=== PATIENT | female | born 1970 | race Caucasian/White ===

== ENCOUNTER 2017-04-22 07:13 | Inpatient (IN) | payer MEDICARE, MEDICAID ==
[2017-04-22] MEDS ORDERED: ASPIRIN 81 MG TABLET, CHEWABLE PO ONE (07:15)
[2017-04-22] MEDS ORDERED: HYDROMORPHONE HCL INJ/PF 2 MG/ML AMPULE IV ONE (07:45)
[2017-04-22] MEDS ORDERED: ONDANSETRON HCL INJ/PF 4 MG/2 ML SDV IV ONE (07:45)
--- NOTE | 2017-04-22 08:09 | ER Document Report ---
ED General - General Chief Complaint: Chest Wall Pain Stated Complaint: CHEST PAIN Time Seen by Provider: 04/22/17 07:28 Mode of Arrival: Medic Information source: Patient Notes: Patient presents to emergency department via EMS for complaints of right lower abdominal pain with history of Crohn's for the past 3 weeks. She reports vomiting diarrhea multiple times for the past 3 weeks. She also complains of having a fever of 101 yesterday with chills. She also reports she has had a productive cough with green sputum for the past 2 weeks. She is complaining of pain to the left side of her lower ribs her that radiates to her back. She reports this started yesterday. She reports she was evaluated by Dr. Velasquez and Dr. Shen 3 weeks ago for these symptoms. TRAVEL OUTSIDE OF THE [place] IN LAST 30 DAYS: No - HPI Onset: Other - 3 weeks Onset/Duration: Persistent Severity: Severe Pain Level: 5 Associated symptoms: Productive cough, Diarrhea, Earache, Nausea Exacerbated by: Coughing, Deep breathing Relieved by: Denies Similar symptoms previously: Yes Recently seen / treated by doctor: Yes - Related Data Allergies/Adverse Reactions: No Known Allergies Allergy (Unverified 04/22/17 07:40) Home Medications: Current Home Medications Azathioprine [Imuran 50 mg Tablet] 100 mg PO BID 04/22/17 [History] Carisoprodol [Soma] 350 mg PO Q12 04/22/17 [History] Dexlansoprazole [Dexilant 60 mg Capsule] 60 mg PO DAILY 04/22/17 [History] Dextroamphetamine/Amphetamine [Adderall 10 mg Tablet] 10 mg PO BID 04/22/17 [ History] Fluoxetine HCl [Prozac] 80 mg PO DAILY 04/22/17 [History] Fluticasone Propionate [Flonase Nasal [place] 50 Mcg/[place] 16 gm] 1 spray NASL DAILY 04/22/17 [History] Lisinopril [Zestril] 10 mg PO DAILY 04/22/17 [History] Meloxicam [Mobic] 7.5 mg PO DAILY 04/22/17 [History] Oxycodone HCl 15 mg PO Q6HP PRN 04/22/17 [History] Pregabalin [Lyrica] 50 mg PO Q12 04/22/17 [History] Zolpidem Tartrate [Ambien] 20 mg PO HSP PRN 04/22/17 [History] Past Medical History - General Information source: Patient Last Menstrual Period: Ablation - Social History Smoking Status: Current Every Day Smoker Cigarette use (# per day): Yes Chew tobacco use (# tins/day): No Frequency of alcohol use: None Drug Abuse: None Lives with: Family - Son Family History: Reviewed & Not Pertinent Patient has suicidal ideation: No Patient has homicidal ideation: No - Past Medical History Cardiac Medical History: Reports: Hx Hypertension Pulmonary Medical History: Reports: Hx Asthma, Hx COPD Renal/ Medical History: Denies: Hx Peritoneal Dialysis GI Medical History: Reports: Hx Crohn's Disease, Hx Gastroesophageal Reflux Disease Psychiatric Medical History: Reports: Hx Attention Deficit Hyperactivity Disorder, Hx Depression Past Surgical History: Reports: Hx Gynecologic Surgery Review of Systems - Review of Systems Notes: Review HPI for review of systems., All other systems negative Physical Exam - Vital signs Vitals: Resp Pulse Ox 16 97 04/22/17 07:25 04/22/17 07:25 - Notes Notes: PHYSICAL EXAMINATION: GENERAL: Moaning, nontoxic looking HEAD: Atraumatic, normocephalic. EYES: Pupils equal round and reactive to light, extraocular movements intact, sclera anicteric, conjunctiva are normal. ENT: nares patent, oropharynx clear without exudates. Moist mucous membranes. NECK: Normal range of motion, supple without lymphadenopathy LUNGS: CTAB and equal. No wheezes rales or rhonchi. No coughing noted during assessment and interview HEART: Regular rate and rhythm without murmurs ABDOMEN: Soft, lower abdominal tenderness RLQ pain worse than LLQ. No guarding, no rebound EXTREMITIES: Normal range of motion, no pitting edema. No cyanosis. NEUROLOGICAL: Cranial nerves grossly intact. Normal sensory/motor exams. PSYCH: Normal mood, normal affect. SKIN: Warm, Dry, normal turgor, no rashes or lesions noted Course - Re-evaluation Re-evalutation: 04/22/17 09:38 WBC 17 pneumonia noted on the x-ray CT. Dr. España consulted. Levaquin initiated after blood culture. Patient admitted to the services of Dr. Mays telemetry. - Vital Signs Vital signs: Temp Pulse Resp BP Pulse Ox 98.4 F 83 17 88/51 L 92 04/22/17 15:59 04/22/17 15:59 04/22/17 15:59 04/22/17 15:59 04/22/17 15:59 - Laboratory Result Diagrams: 04/22/17 08:16 04/22/17 08:16 Laboratory results interpreted by me: 04/22/17 04/22/17 04/22/17 08:16 08:16 09:38 WBC 17.0 H RBC 3.04 L Hgb 8.9 L Hct 26.1 L RDW 17.3 H Plt Count 994 H Seg Neutrophils % 88.0 H Lymphocytes % 7.9 L Absolute Neutrophils 15.0 H Potassium 3.4 L Est GFR (Non-Af Amer) 57 L Direct Bilirubin 0.5 H Total Protein 5.4 L Albumin 2.6 L Urine Blood MODERATE H Urine Urobilinogen 4.0 H Ur Leukocyte Esterase LARGE H - Diagnostic Test Radiology reviewed: Image reviewed, Reports reviewed - Pneumonia noted questionable bacterial versus aspiration. - EKG Interpretation by Me EKG shows normal: Sinus rhythm - Consults spiken Time consulted: 10:35 Reason for consultation: 04/22/17 09:40 admission for pneumonia, hx COPD, crohns Discharge - Discharge Clinical Impression: Abdominal pain Pneumonia Qualifiers: Pneumonia type: due to unspecified organism Laterality: bilateral Lung location : unspecified part of lung Qualified Code(s): J18.9 - Pneumonia, unspecified organism Condition: Stable Disposition: ADMITTED INPATIENT Admitting Provider: Hugo mays Unit Admitted: Telemetry
[2017-04-22 08:38] LABS: ABSOLUTE LYMPHOCYTES (AUTO) 1.3 10^3/uL (0.5-4.7); ABSOLUTE MONOCYTES (AUTO) 0.6 10^3/uL (0.1-1.4); BASOPHILS % (AUTO) 0.2 % (0-2); EOSINOPHILS % (AUTO) 0.2 % (0-6); HEMATOCRIT 26.1 % (36.0-47.0); HEMOGLOBIN 8.9 g/dL (12.0-15.5); HGB HCT DIFFERENCE 0.6; LYMPHOCYTES % (AUTO) 7.9 % (13-45); MEAN CORPUSCULAR HEMOGLOBIN 29.2 pg (27.0-33.4); MEAN CORPUSCULAR VOLUME 86 fl (80-97); MONOCYTES % (AUTO) 3.7 % (3-13); RED BLOOD COUNT 3.04 10^6/uL (3.72-5.28); RED CELL DISTRIBUTION WIDTH 17.3 % (11.5-14.0)
[2017-04-22 08:53] LABS: ALANINE AMINOTRANSFERASE 31 U/L (9-52); ALBUMIN 2.6 g/dL (3.5-5.0); ALKALINE PHOSPHATASE 125 U/L (38-126); ANION GAP 14 (5-19); ASPARTATE AMINO TRANSFERASE 31 U/L (14-36); BILIRUBIN,DIRECT 0.5 mg/dL (0.0-0.4); BILIRUBIN,TOTAL 0.5 mg/dL (0.2-1.3); BLOOD UREA NITROGEN 13 mg/dL (7-20); CALCIUM 8.8 mg/dL (8.4-10.2); CARBON DIOXIDE 22 mmol/L (22-30); CHLORIDE 102 mmol/L (98-107); CREATINE KINASE 133 U/L (30-135); CREATININE RESULT 1.04 mg/dL (0.52-1.25); GLUCOSE 95 mg/dL (75-110); POTASSIUM 3.4 mmol/L (3.6-5.0); SODIUM 138.3 mmol/L (137-145); TOTAL PROTEIN 5.4 g/dL (6.3-8.2)
--- NOTE | 2017-04-22 08:54 | RADIOLOGY REPORT (SQ) ---
EXAM DESCRIPTION: CHEST SINGLE VIEW COMPLETED DATE/TIME: 04/22/2017 8:46 am REASON FOR STUDY: cp COMPARISON: None. EXAM PARAMETERS: NUMBER OF VIEWS: One view. TECHNIQUE: Single frontal radiographic view of the chest acquired. RADIATION DOSE: NA LIMITATIONS: None. FINDINGS: LUNGS AND PLEURA: Left upper lobe and right lower lobe airspace disease. Lungs and pleura l spaces otherwise clear. MEDIASTINUM AND HILAR STRUCTURES: No masses. Contour normal. HEART AND VASCULAR STRUCTURES: Heart normal in size. Normal vasculature. BONES: No acute findings. HARDWARE: None in the chest. OTHER: No other significant finding. IMPRESSION: MULTIFOCAL AIRSPACE DISEASE SUGGESTIVE OF PNEUMONIA. TECHNICAL DOCUMENTATION: JOB ID: [id number]
[2017-04-22 09:05] LABS: CREATINE KINASE MB 1.39 ng/mL (<4.55)
[2017-04-22 09:07] LABS: TROPONIN I < 0.012 ng/mL
--- NOTE | 2017-04-22 09:25 | RADIOLOGY REPORT (SQ) ---
EXAM DESCRIPTION: CT ABD/PELVIS WITH IV ONLY COMPLETED DATE/TIME: 04/22/2017 9:14 am REASON FOR STUDY: ABD PAIN, HX CROHNS COMPARISON: None. TECHNIQUE: CT scan of the abdomen and pelvis performed using helical scanning technique with dynamic intravenous contrast injection. No oral contrast. Images reviewed with lung, soft tissue, and bone windows. Reconstructed coronal and sagittal MPR images reviewed. Delayed images for evaluation of the urinary system also acquired. All images stored on PACS. All CT scanners at this facility use dose modulation, iterative reconstruction, and/or weight based d osing when appropriate to reduce radiation dose to as low as reasonably achievable (ALARA). [facility]: Dose Right [facility]: CareDose [facility]: Dose Right [facility]: Teradose 4D [facility]: [place] CONTRAST TYPE AND DOSE: contrast/concentration: Isovue 370.00 mg/ml; Total Contrast Delivered: 65.0 ml; Total Saline Delivered: 62.0 ml RENAL FUNCTION: None required. The patient is less than 50 years old. RADIATION DOSE: Up-to-date CT equipment and radiation dose reduction techniques were employed. CTDIv ol: 5.8 - 8.2 mGy. DLP: 772 mGy-cm.. LIMITATIONS: None. FINDINGS: LOWER CHEST: Multifocal airspace disease with areas of consolidation demonstrating central cavitation involving the lingula and right lower lobe. Moderate hiatal hernia. LIVER: Normal size. No masses. No dilated ducts. SPLEEN: Normal size. No focal lesions. PANCREAS: No masses. No significant calcifications. No adjacent inflammation or peripancreatic fluid collections. Pancreatic duct not dilated. GALLBLADDER: No identified stones by CT criteria. No inflammatory changes to suggest cholecystitis. ADRENAL GLANDS: No significant masses or asymmetry. RIGHT KIDNEY AND URETER: No solid masses. No significant calcifications. No hydronephrosis or hyd roureter. LEFT KIDNEY AND URETER: No solid masses. No significant calcifications. No hydronephrosis or hydr oureter. AORTA AND VESSELS: No aneurysm. No dissection. Renal arteries, SMA, celiac without stenosis. RETROPERITONEUM: No retroperitoneal adenopathy, hemorrhage or masses. BOWEL AND PERITONEAL CAVITY: Postsurgical change related to partial small bowel resection. No masses or inflammatory changes. No free fluid or peritoneal masses. APPENDIX: Not visualized. PELVIS: No mass. No free fluid. Normal bladder. ABDOMINAL WALL: No masses. No hernias. BONES: No significant or acute findings. OTHER: No other significant finding. IMPRESSION: NO ACUTE FINDINGS WITHIN THE ABDOMEN OR PELVIS. MULTIFOCAL AIRSPACE DISEASE WITH CONSOLIDATION AND CAVITATION INVOLVING THE LINGULA AND RIGHT LOWER L OBE CORRESPONDING TO FINDINGS ON CHEST RADIOGRAPH. MOST COMMONLY THIS IS SECONDARY TO A CAVITATING B ACTERIAL PNEUMONIA IN MAY BE SECONDARY TO ASPIRATION GIVEN MODERATE-SIZED HIATAL HERNIA. DIFFERENTIA L INCLUDES ATYPICAL INFECTIOUS/ INFLAMMATORY AIRSPACE DISEASE AND POTENTIALLY NEOPLASIA. RECOMMEND C ORRELATION WITH RESPIRATORY SYMPTOMS, FEVER/ ELEVATED WHITE BLOOD CELL COUNT. PULMONARY CONSULTATION IS RECOMMENDED. TECHNICAL DOCUMENTATION: JOB ID: [id number] Quality ID # [id number]: Final reports with documentation of one or more dose reduction techniques (e.g., Au tomated exposure control, adjustment of the mA and/or kV according to patient size, use of iterative reconstruction technique) 2010 [email or web address]- All Rights Reserved
[2017-04-22] MEDS ORDERED: LEVOFLOXACIN 750 MG/D5W RTU 750 MG/150 ML RTUPB IV ONE (09:31)
[2017-04-22 12:12] LABS: APPEARANCE,URINE CLOUDY; BILIRUBIN,URINE NEGATIVE (NEGATIVE); GLUCOSE, URINE NEGATIVE (NEGATIVE); KETONES,URINE NEGATIVE (NEGATIVE); LEUKOCYTE ESTERASE,URINE LARGE (NEGATIVE); NITRITE,URINE NEGATIVE (NEGATIVE); PROTEIN,URINE NEGATIVE (NEGATIVE); URINE SPECIFIC GRAVITY 1.011
[2017-04-22] MEDS ORDERED: NORMAL SALINE 500 ML IV ONE (12:45)
[2017-04-22] MEDS: NORMAL SALINE 1000 ML 1,000 ML IV PRN (12:48)
[2017-04-22] MEDS ORDERED: ACETAMINOPHEN 325 MG TABLET PO PRN (13:50)
[2017-04-22] MEDS ORDERED: ALBUTEROL SULFATE 0.083% NEB 2.5 MG/3 ML AMPUL NEB PRN (13:50)
[2017-04-22] MEDS ORDERED: ONDANSETRON HCL INJ/PF 4 MG/2 ML SDV IV PRN (13:57)
[2017-04-22] MEDS ORDERED: POTASSIUM CHLORIDE 10 MEQ TABLET.SA PO ONE (14:02)
--- NOTE | 2017-04-22 14:16 | PDOC H&P ---
History of Present Illness Admission Date/PCP: 04/22/17 09:47 Patient complains of: Shortness of breath History of Present Illness: AMMY BETANCOURT is a 46 year old female, with history of Crohn's disease has been having diarrhea with intermittent rectal bleeding for the past 2 weeks. Rectal bleeding resolved but the diarrhea persist. He reports diarrhea of course about 5-8 times a day. There is associated nausea and vomiting. No chills or fever but there is generalized weakness. 1 week ago the patient started to develop shortness of breath and cough productive of yellowish phlegm. There is associated wheezing but no definite fever. There is no sinus congestion or sore throat. No dizziness or lightheadedness. He does have subjective fever at night. He lost weight of about 10-20 pounds for the last 2 weeks that he is having diarrhea. Patient reports some night sweats at times. No travel outside the [facility]. Patient recently moved to [place] from [place]. No history of HIV nor prior exposure to someone with tuberculosis. Patient denies any hemoptysis as well. For the past 2 days he started to develop pleurisy prompting emergency room visit. Chest x-ray revealed infiltrates that are multifocal. CT scan of the chest showed similar findings with more defined lesion noted to be cavitary suggestive of aspiration. Patient was then referred for admission. Past Medical History Cardiac Medical History: Reports: Hypertension Pulmonary Medical History: Reports: Asthma, Chronic Obstructive Pulmonary Disease (COPD) GI Medical History: Reports: Crohn's Disease, Gastroesophageal Reflux Disease Psychiatric Medical History: Reports: Attention Deficit Hyperactivity Disorder, Depression Past Surgical History Past Surgical History: Reports: None Social History Information Source: Patient Lives with: Family - Son Smoking Status: Current Every Day Smoker Number of Years Smokin Frequency of Alcohol Use: None Hx Recreational Drug Use: No Drugs: None Hx Prescription Drug Abuse: No - Advance Directive Resuscitation Status: Full Code Family History Family History: Malignancy - Prostate, breast, cervical Parental Family History Reviewed: Yes Children Family History Reviewed: Yes Sibling(s) Family History Reviewed.: Yes Medication/Allergy Home Medications: Azathioprine [Imuran 50 mg Tablet] 100 mg PO BID 04/22/17 Carisoprodol [Soma] 350 mg PO Q12 04/22/17 Dexlansoprazole [Dexilant 60 mg Capsule] 60 mg PO DAILY 04/22/17 Dextroamphetamine/Amphetamine [Adderall 10 mg Tablet] mg PO BID 04/22/17 Fluoxetine HCl [Prozac] 80 mg PO DAILY 04/22/17 Fluticasone Propionate [Flonase Nasal [place] 50 Mcg/[place] 16 gm] 1 spray NASL DAILY 04/22/17 Lisinopril [Zestril] 10 mg PO DAILY 04/22/17 Meloxicam [Mobic] 7.5 mg PO DAILY 04/22/17 Oxycodone HCl 15 mg PO Q6HP PRN 04/22/17 Pregabalin [Lyrica] 50 mg PO Q12 04/22/17 Zolpidem Tartrate [Ambien] 20 mg PO HSP PRN 04/22/17 Allergies/Adverse Reactions: No Known Allergies Allergy (Unverified 04/22/17 07:40) Review of Systems Constitutional: PRESENT: night sweats, weakness - Generalized, weight loss - 12 pounds within the last 2 weeks from the diarrhea. ABSENT: chills, fever(s), headache(s), weight gain Eyes: ABSENT: visual disturbances Ears: ABSENT: hearing changes Nose, Mouth, and Throat: ABSENT: mouth pain, sore throat Cardiovascular: PRESENT: dyspnea on exertion. ABSENT: chest pain, edema, orthropnea, palpitations Respiratory: PRESENT: cough, dyspnea, sputum - Yellowish. ABSENT: hemoptysis Gastrointestinal: PRESENT: diarrhea, other - Rectal bleeding resolved spontaneously. ABSENT: abdominal pain, coffee ground emesis, constipation, hematemesis, hematochezia, melena, nausea, vomiting Genitourinary: ABSENT: dysuria, hematuria Musculoskeletal: ABSENT: joint swelling Integumentary: ABSENT: pruritus, rash, wounds Neurological: ABSENT: abnormal gait, abnormal speech, confusion, dizziness, focal weakness, syncope Psychiatric: ABSENT: anxiety, depression, homidical ideation, suicidal ideation Endocrine: ABSENT: cold intolerance, heat intolerance, polydipsia, polyphagia, polyuria Hematologic/Lymphatic: ABSENT: easy bleeding, easy bruising Physical Exam Vital Signs: Temp Pulse Resp BP Pulse Ox 98.5 F 80 28 H 87/42 L 95 04/22/17 12:39 04/22/17 12:39 04/22/17 12:39 04/22/17 12:39 04/22/17 12:39 General appearance: PRESENT: no acute distress, cooperative Head exam: PRESENT: normocephalic Eye exam: PRESENT: conjunctiva pale, EOMI Ear exam: PRESENT: normal external ear exam. ABSENT: drainage Mouth exam: PRESENT: dry mucosa, neck supple, tongue midline Neck exam: ABSENT: carotid bruit, JVD, lymphadenopathy, thyromegaly Respiratory exam: PRESENT: decreased breath sounds - Anteriorly bilateral, rhonchi - Scattered bilateral, wheezes - Mild posteriorly bilateral. ABSENT: rales Cardiovascular exam: PRESENT: RRR. ABSENT: diastolic murmur, rubs, systolic murmur Pulses: PRESENT: normal dorsalis pedis pul Vascular exam: PRESENT: normal capillary refill GI/Abdominal exam: PRESENT: normal bowel sounds, soft. ABSENT: distended, guarding, mass, organolmegaly, rebound, tenderness Rectal exam: PRESENT: deferred Extremities exam: PRESENT: full ROM. ABSENT: calf tenderness, clubbing, pedal edema Neurological exam: PRESENT: alert, awake, oriented to person, oriented to place , oriented to time, oriented to situation, CN II-XII grossly intact. ABSENT: motor sensory deficit Psychiatric exam: PRESENT: appropriate affect, normal mood. ABSENT: homicidal ideation, suicidal ideation Skin exam: PRESENT: dry, intact, warm. ABSENT: cyanosis, rash Results Laboratory Results: 04/22/17 11:20 Lipase 214.5 04/22/17 11:20 Troponin I < 0.012 Impressions: Chest X-Ray 04/22/17 07:15 IMPRESSION: MULTIFOCAL AIRSPACE DISEASE SUGGESTIVE OF PNEUMONIA. Abdomen/Pelvis CT 04/22/17 07:45 IMPRESSION: NO ACUTE FINDINGS WITHIN THE ABDOMEN OR PELVIS. MULTIFOCAL AIRSPACE DISEASE WITH CONSOLIDATION AND CAVITATION INVOLVING THE LINGULA AND RIGHT LOWER LOBE CORRESPONDING TO FINDINGS ON CHEST RADIOGRAPH. MOST COMMONLY THIS IS SECONDARY TO A CAVITATING BACTERIAL PNEUMONIA IN MAY BE SECONDARY TO ASPIRATION GIVEN MODERATE-SIZED HIATAL HERNIA. DIFFERENTIAL INCLUDES ATYPICAL INFECTIOUS/ INFLAMMATORY AIRSPACE DISEASE AND POTENTIALLY NEOPLASIA. RECOMMEND CORRELATION WITH RESPIRATORY SYMPTOMS, FEVER/ ELEVATED WHITE BLOOD CELL COUNT. PULMONARY CONSULTATION IS RECOMMENDED. Assessment & Plan - Diagnosis (1) Pneumonia Qualifiers: Pneumonia type: due to unspecified organism Laterality: bilateral Lung location: unspecified part of lung Qualified Code(s): J18.9 - Pneumonia, unspecified organism Is this a current diagnosis for this admission?: Yes (2) COPD exacerbation Is this a current diagnosis for this admission?: Yes (3) Hypokalemia Is this a current diagnosis for this admission?: Yes (4) Anemia Qualifiers: Anemia type: unspecified type Qualified Code(s): D64.9 - Anemia, unspecified Is this a current diagnosis for this admission?: Yes (5) Thrombocytosis Is this a current diagnosis for this admission?: Yes (6) Essential hypertension Is this a current diagnosis for this admission?: Yes (7) GERD (gastroesophageal reflux disease) Qualifiers: Esophagitis presence: without esophagitis Qualified Code(s): K21.9 - Gastro -esophageal reflux disease without esophagitis Is this a current diagnosis for this admission?: Yes (8) Crohns disease Qualifiers: Gastrointestinal tract location: unspecified location Digestive disease complication type: unspecified complication Qualified Code(s): K50.919 - Crohn 's disease, unspecified, with unspecified complications (9) ADHD Qualifiers: Attention deficit-hyperactivity disorder type: unspecified Qualified Code(s ): F90.9 - Attention-deficit hyperactivity disorder, unspecified type Is this a current diagnosis for this admission?: Yes (10) Depression Qualifiers: Depression Type: unspecified Qualified Code(s): F32.9 - Major depressive disorder, single episode, unspecified Is this a current diagnosis for this admission?: Yes - Time Time Spent: 50 to 70 Minutes - Inpatient Certification Based on my medical assessment, after consideration of the patient's comorbidities, presenting symptoms, or acuity I expect that the services needed warrant INPATIENT care.: Yes I certify that my determination is in accordance with my understanding of Medicare's requirements for reasonable and necessary INPATIENT services [42 CFR 412.3e].: Yes Medical Necessity: Significant Comorbidiites Make Outpatient Treatment Too Risky , Need Close Monitoring Due to Risk of Patient Decompensation, Need For IV Fluids, Need For Continuous Telemetry Monitoring, Need for IV Antibiotics Post Hospital Care: D/C Mgmt Consultant Documentation - Plan Summary Plan Summary: The patient will be admitted to telemetry. We will culture the sputum in the blood. Begin broad-spectrum antibiotic to cover for aspiration. We will start steroids and [id number] nebulizer. DVT prophylaxis with Lovenox will be placed. We will monitor platelet count, replace potassium, and check for anemia profile. We will consult pulmonary for possible bronchoscopy. Further testing depends on the initial evaluations outlined above.
[2017-04-22] MEDS: CLINDAMYCIN 600 MG/D5W RTU 600 MG/50 ML RTUPB IV SCH ×2 (15:19→21:08)
[2017-04-22] MEDS: IPRATROPIUM/ALBUTEROL 0.5-2.5 MG/3 ML AMPUL NEB SCH ×2 (15:35→20:08)
[2017-04-22] MEDS: OXYCODONE HCL IR 5 MG TABLET PO PRN ×2 (15:45→21:08)
[2017-04-22] MEDS ORDERED: ENOXAPARIN SODIUM INJ 40 MG/0.4 ML DISP.SYRIN SUBCUT ONE (16:00)
[2017-04-22] MEDS: METHYLPREDNISOLONE INJ 125 MG/2 ML SDV IV SCH (17:59)
[2017-04-22] MEDS: AZATHIOPRINE 50 MG TABLET PO SCH (17:59)
[2017-04-22] MEDS: CARISOPRODOL 350 MG TABLET PO SCH (21:08)
[2017-04-22] MEDS ORDERED: PREGABALIN 50 MG CAPSULE PO SCH (22:00)
[2017-04-22 22:34] LABS: ADD ON TESTING BLD IN LAB ACKNOWLEDGE
[2017-04-23] MEDS: IPRATROPIUM/ALBUTEROL 0.5-2.5 MG/3 ML AMPUL NEB SCH ×4 (01:38→20:17)
[2017-04-23 05:36] LABS: HEMATOCRIT 26.8 % (36.0-47.0); HEMOGLOBIN 8.9 g/dL (12.0-15.5); HGB HCT DIFFERENCE -0.1; MEAN CORPUSCULAR HEMOGLOBIN 28.9 pg (27.0-33.4); MEAN CORPUSCULAR HGB CONC 33.4 g/dL (32.0-36.0); MEAN CORPUSCULAR VOLUME 87 fl (80-97); RED BLOOD COUNT 3.09 10^6/uL (3.72-5.28); RED CELL DISTRIBUTION WIDTH 17.4 % (11.5-14.0); WHITE BLOOD COUNT 10.6 10^3/uL (4.0-10.5)
[2017-04-23] MEDS: CLINDAMYCIN 600 MG/D5W RTU 600 MG/50 ML RTUPB IV SCH ×3 (05:47→21:08)
[2017-04-23 05:54] LABS: ANION GAP 12 (5-19); BLOOD UREA NITROGEN 9 mg/dL (7-20); CARBON DIOXIDE 20 mmol/L (22-30); CHLORIDE 109 mmol/L (98-107); GLUCOSE 125 mg/dL (75-110); MAGNESIUM 1.5 mg/dL (1.6-2.3); PHOSPHORUS 3.9 mg/dL (2.5-4.5); POTASSIUM 4.2 mmol/L (3.6-5.0); SODIUM 140.8 mmol/L (137-145)
[2017-04-23] MEDS: ENOXAPARIN SODIUM INJ 40 MG/0.4 ML DISP.SYRIN SUBCUT SCH (09:50)
[2017-04-23] MEDS ORDERED: FLUOXETINE HCL 20 MG CAPSULE PO SCH (10:00)
--- NOTE | 2017-04-23 10:16 | PDOC PROGRESS REPORT ---
Subjective Progress Note for:: 04/23/17 Subjective:: Reportedly the patient had a positive quantitative test via serum. Urine test was negative. Patient had not had any sexual activity for more than a year. Patient likewise had not had any menstruation for 5 years. Overall the patient feels better from the treatment. Apparently, where medications were held due to the abnormal test. Physical Exam Vital Signs: Temp Pulse Resp BP Pulse Ox 97.5 F 83 16 120/68 95 04/23/17 07:30 04/23/17 07:30 04/23/17 07:30 04/23/17 07:30 04/23/17 07:30 Intake & Output 04/22/17 04/23/17 04/24/17 06:59 06:59 06:59 Intake Total 2050 Output Total 300 Balance 1750 Weight 61.235 kg General appearance: PRESENT: no acute distress, cooperative Head exam: PRESENT: normocephalic Eye exam: PRESENT: EOMI Mouth exam: PRESENT: moist, neck supple Neck exam: ABSENT: JVD Respiratory exam: PRESENT: rhonchi. ABSENT: wheezes Cardiovascular exam: PRESENT: RRR. ABSENT: gallop GI/Abdominal exam: PRESENT: soft. ABSENT: distended, tenderness Neurological exam: PRESENT: alert, awake, oriented to situation Skin exam: PRESENT: dry, warm. ABSENT: cyanosis Results Laboratory Results: 04/23/17 05:17 04/23/17 05:17 04/23/17 04/23/17 05:17 05:17 WBC 10.6 H RBC 3.09 L Hgb 8.9 L Hct 26.8 L MCV 87 MCH 28.9 MCHC 33.4 RDW 17.4 H Plt Count 831 H Sodium 140.8 Potassium 4.2 Chloride 109 H Carbon Dioxide 20 L Anion Gap 12 BUN 9 Creatinine 0.80 Est GFR ( Amer) > 60 Est GFR (Non-Af Amer) > 60 Glucose 125 H Calcium 9.0 Phosphorus 3.9 Magnesium 1.5 L Impressions: Chest X-Ray 04/22/17 07:15 IMPRESSION: MULTIFOCAL AIRSPACE DISEASE SUGGESTIVE OF PNEUMONIA. Abdomen/Pelvis CT 04/22/17 07:45 IMPRESSION: NO ACUTE FINDINGS WITHIN THE ABDOMEN OR PELVIS. MULTIFOCAL AIRSPACE DISEASE WITH CONSOLIDATION AND CAVITATION INVOLVING THE LINGULA AND RIGHT LOWER LOBE CORRESPONDING TO FINDINGS ON CHEST RADIOGRAPH. MOST COMMONLY THIS IS SECONDARY TO A CAVITATING BACTERIAL PNEUMONIA IN MAY BE SECONDARY TO ASPIRATION GIVEN MODERATE-SIZED HIATAL HERNIA. DIFFERENTIAL INCLUDES ATYPICAL INFECTIOUS/ INFLAMMATORY AIRSPACE DISEASE AND POTENTIALLY NEOPLASIA. RECOMMEND CORRELATION WITH RESPIRATORY SYMPTOMS, FEVER/ ELEVATED WHITE BLOOD CELL COUNT. PULMONARY CONSULTATION IS RECOMMENDED. Assessment & Plan - Diagnosis (1) Pneumonia Qualifiers: Pneumonia type: due to unspecified organism Laterality: bilateral Lung location: unspecified part of lung Qualified Code(s): J18.9 - Pneumonia, unspecified organism Is this a current diagnosis for this admission?: Yes (2) COPD exacerbation Is this a current diagnosis for this admission?: Yes (3) Hypokalemia Is this a current diagnosis for this admission?: Yes (4) Anemia Qualifiers: Anemia type: unspecified type Qualified Code(s): D64.9 - Anemia, unspecified Is this a current diagnosis for this admission?: Yes (5) Thrombocytosis Is this a current diagnosis for this admission?: Yes (6) Essential hypertension Is this a current diagnosis for this admission?: Yes (7) GERD (gastroesophageal reflux disease) Qualifiers: Esophagitis presence: without esophagitis Qualified Code(s): K21.9 - Gastro -esophageal reflux disease without esophagitis Is this a current diagnosis for this admission?: Yes (8) Crohns disease Qualifiers: Gastrointestinal tract location: unspecified location Digestive disease complication type: unspecified complication Qualified Code(s): K50.919 - Crohn 's disease, unspecified, with unspecified complications (9) ADHD Qualifiers: Attention deficit-hyperactivity disorder type: unspecified Qualified Code(s ): F90.9 - Attention-deficit hyperactivity disorder, unspecified type Is this a current diagnosis for this admission?: Yes (10) Depression Qualifiers: Depression Type: unspecified Qualified Code(s): F32.9 - Major depressive disorder, single episode, unspecified Is this a current diagnosis for this admission?: Yes - Time Time Spent with patient: 25-34 minutes - Plan Summary Plan Summary: We are going to resume her medications. We will obtain transvaginal ultrasound. We will likewise obtain repeat hCG in a.m. If still elevated we will call gynecology. In the meantime continue current medications. Replace magnesium and recheck levels in the morning. Continue supportive care.
[2017-04-23] MEDS: OXYCODONE HCL IR 5 MG TABLET PO PRN ×3 (10:39→23:50)
[2017-04-23] MEDS ORDERED: PREGABALIN 50 MG CAPSULE PO ONE (11:00)
[2017-04-23] MEDS ORDERED: CARISOPRODOL 350 MG TABLET PO ONE (11:00)
[2017-04-23] MEDS ORDERED: MAGNESIUM SULFATE/D5W 1 GM/100 ML RTUPB IV ONE (11:00)
[2017-04-23] MEDS: METHYLPREDNISOLONE INJ 125 MG/2 ML SDV IV SCH ×3 (12:27→23:49)
[2017-04-23] MEDS: NORMAL SALINE 1000 ML 1,000 ML IV PRN ×2 (13:30→23:54)
--- NOTE | 2017-04-23 19:05 | RADIOLOGY REPORT (SQ) ---
EXAM DESCRIPTION: U/S NON OB PEL TV W/DOPPLER COMPLETED DATE/TIME: 04/23/2017 6:50 pm REASON FOR STUDY: elevated HCG COMPARISON: CT from yesterday. TECHNIQUE: Dynamic and static grayscale images acquired of the pelvis via transvaginal approach and recorded on PACS. Additional selected color Doppler and spectral images recorded. LIMITATIONS: None. FINDINGS: UTERUS: Probable fundal fibroid measuring just over 2 cm. Hypoechoic roughly rounded justine on. ENDOMETRIAL STRIPE: No focal or generalized thickening. No masses. CERVIX: No nabothian cysts. RIGHT OVARY: Not seen. Obscured by bowel gas. RIGHT OVARY DOPPLER: Ovary not visualized. LEFT OVARY: Not seen. Obscured by bowel gas. LEFT OVARY DOPPLER: Ovary not visualized. FREE FLUID: None noted. OTHER: No other significant finding. MEASUREMENTS: UTERUS: 6 x 5 x 3 cm ENDOMETRIAL STRIPE: 2 mm RIGHT OVARY: Not visualized. LEFT OVARY: Not visualized. IMPRESSION: Fibroid uterus. Ovaries not visualized. TECHNICAL DOCUMENTATION: JOB ID: [id number]- All Rights Reserved
[2017-04-23] MEDS: CARISOPRODOL 350 MG TABLET PO SCH (21:08)
[2017-04-23] MEDS: ZOLPIDEM TARTRATE 5 MG TABLET PO PRN (21:08)
[2017-04-23] MEDS ORDERED: MAG HYDROX/AL HYDROX/SIMETH SUSP 30 ML UDCUP PO PRN (23:20)
[2017-04-24] MEDS: IPRATROPIUM/ALBUTEROL 0.5-2.5 MG/3 ML AMPUL NEB SCH ×4 (02:30→19:39)
[2017-04-24 05:32] LABS: MAGNESIUM 1.9 mg/dL (1.6-2.3)
[2017-04-24] MEDS: METHYLPREDNISOLONE INJ 125 MG/2 ML SDV IV SCH ×2 (05:54→12:08)
[2017-04-24] MEDS: CLINDAMYCIN 600 MG/D5W RTU 600 MG/50 ML RTUPB IV SCH ×3 (05:55→21:09)
[2017-04-24] MEDS: OXYCODONE HCL IR 5 MG TABLET PO PRN ×3 (05:55→18:18)
[2017-04-24] MEDS: NORMAL SALINE 1000 ML 1,000 ML IV PRN ×3 (06:01→15:52)
--- NOTE | 2017-04-24 06:28 | EKG REPORT ---
SEVERITY:- ABNORMAL ECG - SINUS RHYTHM NONSPECIFIC T ABNORMALITIES, DIFFUSE LEADS : Confirmed by: Bety Villarreal MD 24-Apr-2017 06:27:47
[2017-04-24] MEDS: CARISOPRODOL 350 MG TABLET PO SCH ×2 (10:43→21:08)
[2017-04-24] MEDS: ENOXAPARIN SODIUM INJ 40 MG/0.4 ML DISP.SYRIN SUBCUT SCH (10:44)
[2017-04-24] MEDS: AZATHIOPRINE 50 MG TABLET PO SCH ×2 (10:44→18:11)
--- NOTE | 2017-04-24 10:58 | PDOC CONSULTATION ---
Consultation Consult Date: 04/24/17 Attending physician:: KORY FOLEY Consult reason:: Dyspnea History of Present Illness Admission Date/PCP: 04/22/17 13:28 History of Present Illness: AMMY BETANCOURT is a 46 year old female, with history of 3 week history of cough increasing shortness of breath over the last 3 days is associated with some chills but no fever. she denies hemoptysis her PPD was negative approximately a year ago. she has had a history of asthma as a child. she admits to exposure to passive smoke as a child as well as an adult. she states at home even prior to this event she had TOLENTINO use with ADLs. She herself hs smoked a pack a day for 30 years. 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 she has no pets and denies any recent travel. she does complain of tightness in her chest.She sleeps on 2 pillows with occasional PND occasional nocturnal cough and frequent edema. she admits to snoring, restless sleep, nocturia 4, unrestful sleep and excessive daytime somnolence.In addition to having Crohn's he has dysphasia and sometimes Crista aphasia has had multiple esophageal dilatations in the past Past Medical History Cardiac Medical History: Reports: Hypertension Pulmonary Medical History: Reports: Asthma, Chronic Obstructive Pulmonary Disease (COPD) GI Medical History: Reports: Crohn's Disease, Gastroesophageal Reflux Disease, Other - Esophageal strictures and Orellana's esophagus Psychiatric Medical History: Reports: Attention Deficit Hyperactivity Disorder, Depression Past Surgical History Past Surgical History: Reports: None, Section, Orthopedic Surgery, Tubal Ligation Social History Information Source: Patient, [facility] Records Lives with: Family - Son Smoking Status: Current Every Day Smoker Cigarettes Packs Per Day: 1 Number of Years Smokin Passive smoke exposure as: Both Frequency of Alcohol Use: None Hx Recreational Drug Use: No Drugs: None Hx Prescription Drug Abuse: No Do you have pets?: No Have you had any respiratory illnesses as a child?: Yes Have you been exposed to any sick contacts recently?: No Have you had any recent respiratory illnesses?: No Have you travelled outside of [place] in the past 12 months?: No - Advance Directive Resuscitation Status: Full Code Family History Family History: Reviewed & Not Pertinent, Hypertension, Other - Asthma; cancer Parental Family History Reviewed: Yes Children Family History Reviewed: Yes Sibling(s) Family History Reviewed.: Yes Medication/Allergy Home Medications: Azathioprine [Imuran 50 mg Tablet] 100 mg PO BID 04/22/17 Carisoprodol [Soma] 350 mg PO Q12 04/22/17 Dexlansoprazole [Dexilant 60 mg Capsule] 60 mg PO DAILY 04/22/17 Dextroamphetamine/Amphetamine [Adderall 10 mg Tablet] 10 mg PO BID 04/22/17 Fluoxetine HCl [Prozac] 80 mg PO DAILY 04/22/17 Fluticasone Propionate [Flonase Nasal [place] 50 Mcg/[place] 16 gm] 1 spray NASL DAILY 04/22/17 Lisinopril [Zestril] 10 mg PO DAILY 04/22/17 Meloxicam [Mobic] 7.5 mg PO DAILY 04/22/17 Oxycodone HCl 15 mg PO Q6HP PRN 04/22/17 Pregabalin [Lyrica] 50 mg PO Q12 04/22/17 Zolpidem Tartrate [Ambien] 20 mg PO HSP PRN 04/22/17 Allergies/Adverse Reactions: No Known Allergies Allergy (Unverified 04/22/17 07:40) Review of Systems All systems: reviewed and no additional remarkable complaints except as stated Physical Exam Vital Signs: Temp Pulse Resp BP Pulse Ox 97.4 F 76 14 148/86 H 94 04/24/17 07:13 04/24/17 07:54 04/24/17 07:54 04/24/17 07:13 04/24/17 07:54 Intake & Output 04/23/17 04/24/17 04/25/17 06:59 06:59 06:59 Intake Total 2050 7047 Output Total 300 600 Balance 1750 6447 Weight 61.235 kg 64.9 kg General appearance: PRESENT: no acute distress, cooperative, disheveled, well- developed Head exam: PRESENT: atraumatic, normocephalic Eye exam: PRESENT: conjunctiva pale, EOMI Mouth exam: PRESENT: dry mucosa, neck supple, tongue midline Neck exam: ABSENT: carotid bruit, JVD, lymphadenopathy, thyromegaly Respiratory exam: PRESENT: decreased breath sounds, prolonged expiratory phas, rhonchi, symmetrical, unlabored. ABSENT: retraction, stridor, tachypnea Cardiovascular exam: PRESENT: RRR, +S1, +S2 Pulses: PRESENT: normal radial pulses GI/Abdominal exam: PRESENT: normal bowel sounds, soft. ABSENT: distended, guarding, mass, organolmegaly, rebound, tenderness Rectal exam: PRESENT: deferred Musculoskeletal exam: PRESENT: normal inspection Neurological exam: PRESENT: alert, awake Psychiatric exam: PRESENT: normal mood Skin exam: PRESENT: dry, warm Results Laboratory Results: 04/23/17 05:17 04/23/17 05:17 04/24/17 04:31 Magnesium 1.9 Impressions: Chest X-Ray 04/22/17 07:15 IMPRESSION: MULTIFOCAL AIRSPACE DISEASE SUGGESTIVE OF PNEUMONIA. Abdomen/Pelvis CT 04/22/17 07:45 IMPRESSION: NO ACUTE FINDINGS WITHIN THE ABDOMEN OR PELVIS. MULTIFOCAL AIRSPACE DISEASE WITH CONSOLIDATION AND CAVITATION INVOLVING THE LINGULA AND RIGHT LOWER LOBE CORRESPONDING TO FINDINGS ON CHEST RADIOGRAPH. MOST COMMONLY THIS IS SECONDARY TO A CAVITATING BACTERIAL PNEUMONIA IN MAY BE SECONDARY TO ASPIRATION GIVEN MODERATE-SIZED HIATAL HERNIA. DIFFERENTIAL INCLUDES ATYPICAL INFECTIOUS/ INFLAMMATORY AIRSPACE DISEASE AND POTENTIALLY NEOPLASIA. RECOMMEND CORRELATION WITH RESPIRATORY SYMPTOMS, FEVER/ ELEVATED WHITE BLOOD CELL COUNT. PULMONARY CONSULTATION IS RECOMMENDED. Transvaginal US 04/23/17 00:00 IMPRESSION: Fibroid uterus. Ovaries not visualized. Assessment & Plan - Diagnosis (1) Elevated serum hCG Is this a current diagnosis for this admission?: Yes Plan: Consider ENVIRONMENTAL CHANGE ANALYST consultation (2) GERD (gastroesophageal reflux disease) Qualifiers: Esophagitis presence: without esophagitis Qualified Code(s): K21.9 - Gastro -esophageal reflux disease without esophagitis Is this a current diagnosis for this admission?: Yes Plan: Orellana's esophagus dysphasia,odynophagia multiple esophageal dilatations (3) Pneumonia Qualifiers: Pneumonia type: due to unspecified organism Laterality: bilateral Lung location: unspecified part of lung Qualified Code(s): J18.9 - Pneumonia, unspecified organism Is this a current diagnosis for this admission?: Yes Plan: Consider adding penicillin medical regimen actinomycosis frequently cavitates
--- NOTE | 2017-04-24 13:43 | PDOC PROGRESS REPORT ---
Subjective Progress Note for:: 04/24/17 Subjective:: No increasing diarrhea reported. Abdominal discomfort and diarrhea actually is improving. Shortness of breath is better. No chills fever nausea or vomiting. No temperature spikes reported. Quantitative hCG still positive. Physical Exam Vital Signs: Temp Pulse Resp BP Pulse Ox 97.4 F 76 14 148/86 H 94 04/24/17 07:13 04/24/17 07:54 04/24/17 07:54 04/24/17 07:13 04/24/17 07:54 Intake & Output 04/23/17 04/24/17 04/25/17 06:59 06:59 06:59 Intake Total 2050 7047 Output Total 300 600 Balance 1750 6447 Weight 61.235 kg 64.9 kg General appearance: PRESENT: no acute distress, cooperative Head exam: PRESENT: normocephalic Eye exam: PRESENT: EOMI Mouth exam: PRESENT: moist, neck supple Neck exam: ABSENT: JVD Respiratory exam: PRESENT: clear to auscultation riaz - Anteriorly. ABSENT: rhonchi, wheezes Cardiovascular exam: PRESENT: RRR. ABSENT: gallop GI/Abdominal exam: PRESENT: hyperactive bowel sounds, soft. ABSENT: distended, tenderness Extremities exam: ABSENT: pedal edema Neurological exam: PRESENT: alert, awake, oriented to situation Skin exam: PRESENT: dry, warm. ABSENT: cyanosis Results Laboratory Results: 04/23/17 05:17 04/23/17 05:17 04/24/17 04:31 Magnesium 1.9 Impressions: Chest X-Ray 04/22/17 07:15 IMPRESSION: MULTIFOCAL AIRSPACE DISEASE SUGGESTIVE OF PNEUMONIA. Abdomen/Pelvis CT 04/22/17 07:45 IMPRESSION: NO ACUTE FINDINGS WITHIN THE ABDOMEN OR PELVIS. MULTIFOCAL AIRSPACE DISEASE WITH CONSOLIDATION AND CAVITATION INVOLVING THE LINGULA AND RIGHT LOWER LOBE CORRESPONDING TO FINDINGS ON CHEST RADIOGRAPH. MOST COMMONLY THIS IS SECONDARY TO A CAVITATING BACTERIAL PNEUMONIA IN MAY BE SECONDARY TO ASPIRATION GIVEN MODERATE-SIZED HIATAL HERNIA. DIFFERENTIAL INCLUDES ATYPICAL INFECTIOUS/ INFLAMMATORY AIRSPACE DISEASE AND POTENTIALLY NEOPLASIA. RECOMMEND CORRELATION WITH RESPIRATORY SYMPTOMS, FEVER/ ELEVATED WHITE BLOOD CELL COUNT. PULMONARY CONSULTATION IS RECOMMENDED. Transvaginal US 04/23/17 00:00 IMPRESSION: Fibroid uterus. Ovaries not visualized. Assessment & Plan - Diagnosis (1) Pneumonia Qualifiers: Pneumonia type: due to unspecified organism Laterality: bilateral Lung location: unspecified part of lung Qualified Code(s): J18.9 - Pneumonia, unspecified organism Is this a current diagnosis for this admission?: Yes (2) COPD exacerbation Is this a current diagnosis for this admission?: Yes (3) Elevated serum hCG Is this a current diagnosis for this admission?: Yes (4) Hypokalemia Is this a current diagnosis for this admission?: Yes (5) Anemia Qualifiers: Anemia type: unspecified type Qualified Code(s): D64.9 - Anemia, unspecified Is this a current diagnosis for this admission?: Yes (6) Thrombocytosis Is this a current diagnosis for this admission?: Yes (7) Essential hypertension Is this a current diagnosis for this admission?: Yes (8) GERD (gastroesophageal reflux disease) Qualifiers: Esophagitis presence: without esophagitis Qualified Code(s): K21.9 - Gastro -esophageal reflux disease without esophagitis Is this a current diagnosis for this admission?: Yes (9) Crohns disease Qualifiers: Gastrointestinal tract location: unspecified location Digestive disease complication type: unspecified complication Qualified Code(s): K50.919 - Crohn 's disease, unspecified, with unspecified complications (10) ADHD Qualifiers: Attention deficit-hyperactivity disorder type: unspecified Qualified Code(s ): F90.9 - Attention-deficit hyperactivity disorder, unspecified type Is this a current diagnosis for this admission?: Yes (11) Depression Qualifiers: Depression Type: unspecified Qualified Code(s): F32.9 - Major depressive disorder, single episode, unspecified Is this a current diagnosis for this admission?: Yes - Time Time Spent with patient: 25-34 minutes - Plan Summary Plan Summary: Patient improving. We will advance her diet to regular consistency. Continue antibiotic for aspiration. Pulmonary evaluated the patient recommended Actinomyces treatment. Clindamycin should cover for actinomyces. In the meantime we will wean steroids. Continue supportive care. Consult M[facility]IE [facility]AR for the elevated hCG.
[2017-04-24] MEDS ORDERED: CIPROFLOXACIN 400 MG/D5W RTU 400 MG/200 ML RTUPB IV ONE (14:00)
[2017-04-24] MEDS ORDERED: ALBUTEROL SULFATE 0.083% NEB 2.5 MG/3 ML AMPUL NEB PRN (14:30)
[2017-04-24] MEDS ORDERED: ONDANSETRON HCL INJ/PF 4 MG/2 ML SDV IV PRN (14:30)
[2017-04-24] MEDS: MAG HYDROX/AL HYDROX/SIMETH SUSP 30 ML UDCUP PO PRN ×2 (14:43→21:07)
[2017-04-24] MEDS ORDERED: FLUOXETINE HCL 20 MG CAPSULE PO ONE (15:00)
[2017-04-24] MEDS: ZOLPIDEM TARTRATE 5 MG TABLET PO PRN (21:08)
[2017-04-25] MEDS: OXYCODONE HCL IR 5 MG TABLET PO PRN ×4 (00:15→18:16)
[2017-04-25] MEDS: NORMAL SALINE 1000 ML 1,000 ML IV PRN ×3 (00:20→18:05)
[2017-04-25] MEDS: IPRATROPIUM/ALBUTEROL 0.5-2.5 MG/3 ML AMPUL NEB SCH ×4 (01:57→19:34)
--- NOTE | 2017-04-25 05:04 | PDOC CONSULTATION ---
History of Present Illness Admission Date/PCP: 04/22/17 13:28 History of Present Illness: AMMY BETANCOURT is a 46 year old female, with history of 3 week history of cough increasing shortness of breath over the last 3 days is associated with some chills but no fever. she denies hemoptysis her PPD was negative approximately a year ago. she has had a history of asthma as a child. she admits to exposure to passive smoke as a child as well as an adult. she states at home even prior to this event she had TOLENTINO use with ADLs. She herself hs smoked a pack a day for 30 years. 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 she has no pets and denies any recent travel. she does complain of tightness in her chest.She sleeps on 2 pillows with occasional PND occasional nocturnal cough and frequent edema. she admits to snoring, restless sleep, nocturia 4, unrestful sleep and excessive daytime somnolence.In addition to having Crohn's he has dysphasia and sometimes Crista aphasia has had multiple esophageal dilatations in the past. consult placed due to elevated serum BHCG quant level. Pt has not had menses for >5 years. HCG level 8 on recheck >48 hrs after previous level of 6. Has had no signs or symptoms otherwise. Past Medical History Cardiac Medical History: Reports: Hypertension Pulmonary Medical History: Reports: Asthma, Chronic Obstructive Pulmonary Disease (COPD) GI Medical History: Reports: Crohn's Disease, Gastroesophageal Reflux Disease, Other - Esophageal strictures and Orellana's esophagus Psychiatric Medical History: Reports: Attention Deficit Hyperactivity Disorder, Depression Social History Lives with: Family - Son Smoking Status: Current Every Day Smoker Cigarettes Packs Per Day: 1 Number of Years Smokin Frequency of Alcohol Use: None Hx Recreational Drug Use: No Drugs: None Hx Prescription Drug Abuse: No - Advance Directive Resuscitation Status: Full Code Family History Family History: Reviewed & Not Pertinent, Hypertension, Other - Asthma; cancer Parental Family History Reviewed: Yes Children Family History Reviewed: Yes Sibling(s) Family History Reviewed.: Yes Medication/Allergy Home Medications: Azathioprine [Imuran 50 mg Tablet] 100 mg PO BID 04/22/17 Carisoprodol [Soma] 350 mg PO Q12 04/22/17 Dexlansoprazole [Dexilant 60 mg Capsule] 60 mg PO DAILY 04/22/17 Dextroamphetamine/Amphetamine [Adderall 10 mg Tablet] 10 mg PO BID 04/22/17 Fluoxetine HCl [Prozac] 80 mg PO DAILY 04/22/17 Fluticasone Propionate [Flonase Nasal [place] 50 Mcg/[place] 16 gm] 1 spray NASL DAILY 04/22/17 Lisinopril [Zestril] 10 mg PO DAILY 04/22/17 Meloxicam [Mobic] 7.5 mg PO DAILY 04/22/17 Oxycodone HCl 15 mg PO Q6HP PRN 04/22/17 Pregabalin [Lyrica] 50 mg PO Q12 04/22/17 Zolpidem Tartrate [Ambien] 20 mg PO HSP PRN 04/22/17 Allergies/Adverse Reactions: No Known Allergies Allergy (Unverified 04/22/17 07:40) Physical Exam - Physical Exam Vital Signs: Temp Pulse Resp BP Pulse Ox 98.2 F 55 L 16 121/54 L 100 04/25/17 04:00 04/25/17 04:00 04/25/17 04:00 04/25/17 04:00 04/25/17 04:00 Intake & Output 04/23/17 04/24/17 04/25/17 06:59 06:59 06:59 Intake Total 2050 7047 2370 Output Total 300 600 650 Balance 1750 6447 1720 Weight 61.235 kg 64.9 kg Result Laboratory Results: 04/23/17 05:17 04/23/17 05:17 04/24/17 04:31 Magnesium 1.9 Impressions: Chest X-Ray 04/22/17 07:15 IMPRESSION: MULTIFOCAL AIRSPACE DISEASE SUGGESTIVE OF PNEUMONIA. Abdomen/Pelvis CT 04/22/17 07:45 IMPRESSION: NO ACUTE FINDINGS WITHIN THE ABDOMEN OR PELVIS. MULTIFOCAL AIRSPACE DISEASE WITH CONSOLIDATION AND CAVITATION INVOLVING THE LINGULA AND RIGHT LOWER LOBE CORRESPONDING TO FINDINGS ON CHEST RADIOGRAPH. MOST COMMONLY THIS IS SECONDARY TO A CAVITATING BACTERIAL PNEUMONIA IN MAY BE SECONDARY TO ASPIRATION GIVEN MODERATE-SIZED HIATAL HERNIA. DIFFERENTIAL INCLUDES ATYPICAL INFECTIOUS/ INFLAMMATORY AIRSPACE DISEASE AND POTENTIALLY NEOPLASIA. RECOMMEND CORRELATION WITH RESPIRATORY SYMPTOMS, FEVER/ ELEVATED WHITE BLOOD CELL COUNT. PULMONARY CONSULTATION IS RECOMMENDED. Transvaginal US 04/23/17 00:00 IMPRESSION: Fibroid uterus. Ovaries not visualized. Assessment & Plan - Diagnosis (1) Elevated serum hCG Is this a current diagnosis for this admission?: Yes (2) ADHD Qualifiers: Attention deficit-hyperactivity disorder type: unspecified Qualified Code(s ): F90.9 - Attention-deficit hyperactivity disorder, unspecified type Is this a current diagnosis for this admission?: Yes (4) Anemia Qualifiers: Anemia type: unspecified type Qualified Code(s): D64.9 - Anemia, unspecified Is this a current diagnosis for this admission?: Yes (5) COPD exacerbation Is this a current diagnosis for this admission?: Yes (6) Crohns disease Qualifiers: Gastrointestinal tract location: unspecified location Digestive disease complication type: unspecified complication Qualified Code(s): K50.919 - Crohn 's disease, unspecified, with unspecified complications (7) Depression Qualifiers: Depression Type: unspecified Qualified Code(s): F32.9 - Major depressive disorder, single episode, unspecified Is this a current diagnosis for this admission?: Yes (8) Essential hypertension Is this a current diagnosis for this admission?: Yes - Plan Summary Plan Summary: elevated HCG at this age and value very unlikely to be related. ( likelihood of at this age and history of amenorrhea approximately 0.01 %) will repeat level to assess if this rise is transient or if remains elevated. If does remain elevated would recommend assessment with [employer] Oncology to assess likelihood of gestational trophoplastic disease which is also unlikely and at these low serum levels would be at a very early stage. thank you for the opportunity to assist in the care of this patient.
[2017-04-25] MEDS: CLINDAMYCIN 600 MG/D5W RTU 600 MG/50 ML RTUPB IV SCH ×3 (05:31→21:02)
[2017-04-25] MEDS: CIPROFLOXACIN 400 MG/D5W RTU 400 MG/200 ML RTUPB IV SCH ×2 (05:32→18:00)
[2017-04-25] MEDS: CARISOPRODOL 350 MG TABLET PO SCH ×2 (10:56→21:02)
[2017-04-25] MEDS: PREDNISONE 20 MG TABLET PO SCH (10:57)
[2017-04-25] MEDS: FLUOXETINE HCL 20 MG CAPSULE PO SCH (10:57)
[2017-04-25] MEDS: AZATHIOPRINE 50 MG TABLET PO SCH ×2 (10:59→18:06)
[2017-04-25] MEDS: ENOXAPARIN SODIUM INJ 40 MG/0.4 ML DISP.SYRIN SUBCUT SCH (11:06)
--- NOTE | 2017-04-25 11:38 | PDOC PROGRESS REPORT ---
Subjective Progress Note for:: 04/25/17 Subjective:: Feel better than yesterday Physical Exam Vital Signs: Temp Pulse Resp BP Pulse Ox 98.2 F 78 16 121/54 L 92 04/25/17 04:00 04/25/17 08:05 04/25/17 08:05 04/25/17 04:00 04/25/17 08:05 Intake & Output 04/24/17 04/25/17 04/26/17 06:59 06:59 06:59 Intake Total 7047 5370 Output Total 600 650 Balance 6447 4684 Weight 64.9 kg 64.9 kg General appearance: PRESENT: no acute distress, cooperative, disheveled, obese, well-developed Head exam: PRESENT: atraumatic, normocephalic Eye exam: PRESENT: conjunctiva pale, EOMI Mouth exam: PRESENT: moist, neck supple, tongue midline Teeth exam: PRESENT: poor dentation Neck exam: ABSENT: carotid bruit, JVD, lymphadenopathy, thyromegaly Respiratory exam: PRESENT: decreased breath sounds, prolonged expiratory phas, rhonchi, symmetrical, unlabored. ABSENT: retraction, stridor, tachypnea Cardiovascular exam: PRESENT: RRR, +S1, +S2. ABSENT: tachycardia Pulses: PRESENT: normal radial pulses GI/Abdominal exam: PRESENT: normal bowel sounds, soft. ABSENT: distended, guarding, mass, organolmegaly, rebound, tenderness Rectal exam: PRESENT: deferred Gentrourinary exam: PRESENT: indwelling catheter Neurological exam: PRESENT: alert, awake Psychiatric exam: PRESENT: normal mood Skin exam: PRESENT: dry, warm Results Laboratory Results: 04/23/17 05:17 04/23/17 05:17 04/22/17 17:20 Sputum Gram Stain - Final 04/22/17 17:20 Sputum Sputum Culture - Final C.albicans/C.dubliniensis Normal Noemí Impressions: Chest X-Ray 04/22/17 07:15 IMPRESSION: MULTIFOCAL AIRSPACE DISEASE SUGGESTIVE OF PNEUMONIA. Abdomen/Pelvis CT 04/22/17 07:45 IMPRESSION: NO ACUTE FINDINGS WITHIN THE ABDOMEN OR PELVIS. MULTIFOCAL AIRSPACE DISEASE WITH CONSOLIDATION AND CAVITATION INVOLVING THE LINGULA AND RIGHT LOWER LOBE CORRESPONDING TO FINDINGS ON CHEST RADIOGRAPH. MOST COMMONLY THIS IS SECONDARY TO A CAVITATING BACTERIAL PNEUMONIA IN MAY BE SECONDARY TO ASPIRATION GIVEN MODERATE-SIZED HIATAL HERNIA. DIFFERENTIAL INCLUDES ATYPICAL INFECTIOUS/ INFLAMMATORY AIRSPACE DISEASE AND POTENTIALLY NEOPLASIA. RECOMMEND CORRELATION WITH RESPIRATORY SYMPTOMS, FEVER/ ELEVATED WHITE BLOOD CELL COUNT. PULMONARY CONSULTATION IS RECOMMENDED. Transvaginal US 04/23/17 00:00 IMPRESSION: Fibroid uterus. Ovaries not visualized. Assessment & Plan - Diagnosis (1) Elevated serum hCG Is this a current diagnosis for this admission?: Yes Plan: As per MUSIC ENGRAVER (2) GERD (gastroesophageal reflux disease) Qualifiers: Esophagitis presence: without esophagitis Qualified Code(s): K21.9 - Gastro -esophageal reflux disease without esophagitis Is this a current diagnosis for this admission?: Yes Plan: Continue PPI (3) Pneumonia Qualifiers: Pneumonia type: due to unspecified organism Laterality: bilateral Lung location: unspecified part of lung Qualified Code(s): J18.9 - Pneumonia, unspecified organism Is this a current diagnosis for this admission?: Yes Plan: Poor dentition per patient certainly actinomycoses remains in the differential diagnosis
--- NOTE | 2017-04-25 12:52 | PDOC PROGRESS REPORT ---
Subjective Progress Note for:: 04/25/17 Subjective:: Complains of cough but reports she feels better than yesterday. Physical Exam Vital Signs: Temp Pulse Resp BP Pulse Ox 98.2 F 78 16 121/54 L 92 04/25/17 04:00 04/25/17 08:05 04/25/17 08:05 04/25/17 04:00 04/25/17 08:05 Intake & Output 04/24/17 04/25/17 04/26/17 06:59 06:59 06:59 Intake Total 7047 5334 Output Total 600 650 Balance 6447 4684 Weight 64.9 kg 64.9 kg General appearance: PRESENT: no acute distress Eye exam: PRESENT: conjunctiva pink. ABSENT: scleral icterus Ear exam: PRESENT: normal external ear exam Mouth exam: PRESENT: moist, tongue midline Teeth exam: PRESENT: poor dentation Neck exam: ABSENT: JVD Respiratory exam: PRESENT: rhonchi - Coarse rhonchi in the bases.. ABSENT: rales, wheezes Cardiovascular exam: PRESENT: RRR. ABSENT: diastolic murmur, rubs, systolic murmur GI/Abdominal exam: PRESENT: normal bowel sounds, soft. ABSENT: distended, guarding, mass, organolmegaly, rebound, tenderness Extremities exam: ABSENT: calf tenderness, clubbing, pedal edema Neurological exam: PRESENT: alert, awake, oriented to person, oriented to place , oriented to time, oriented to situation, CN II-XII grossly intact. ABSENT: motor sensory deficit Psychiatric exam: PRESENT: appropriate affect Skin exam: PRESENT: dry, intact, warm. ABSENT: cyanosis, rash Results Laboratory Results: 04/23/17 05:17 04/23/17 05:17 04/22/17 17:20 Sputum Gram Stain - Final 04/22/17 17:20 Sputum Sputum Culture - Final C.albicans/C.dubliniensis Normal Noemí Impressions: Chest X-Ray 04/22/17 07:15 IMPRESSION: MULTIFOCAL AIRSPACE DISEASE SUGGESTIVE OF PNEUMONIA. Abdomen/Pelvis CT 04/22/17 07:45 IMPRESSION: NO ACUTE FINDINGS WITHIN THE ABDOMEN OR PELVIS. MULTIFOCAL AIRSPACE DISEASE WITH CONSOLIDATION AND CAVITATION INVOLVING THE LINGULA AND RIGHT LOWER LOBE CORRESPONDING TO FINDINGS ON CHEST RADIOGRAPH. MOST COMMONLY THIS IS SECONDARY TO A CAVITATING BACTERIAL PNEUMONIA IN MAY BE SECONDARY TO ASPIRATION GIVEN MODERATE-SIZED HIATAL HERNIA. DIFFERENTIAL INCLUDES ATYPICAL INFECTIOUS/ INFLAMMATORY AIRSPACE DISEASE AND POTENTIALLY NEOPLASIA. RECOMMEND CORRELATION WITH RESPIRATORY SYMPTOMS, FEVER/ ELEVATED WHITE BLOOD CELL COUNT. PULMONARY CONSULTATION IS RECOMMENDED. Transvaginal US 04/23/17 00:00 IMPRESSION: Fibroid uterus. Ovaries not visualized. Assessment & Plan - Diagnosis (1) Pneumonia Qualifiers: Pneumonia type: due to unspecified organism Laterality: bilateral Lung location: unspecified part of lung Qualified Code(s): J18.9 - Pneumonia, unspecified organism Is this a current diagnosis for this admission?: Yes Plan: Patient is clinically improving. Cultures are negative so far. Appreciate pulmonary medicine's input. Will continue with the clindamycin and ciprofloxacin. There is concern about the possibility of actinomyces. Patient has been on Imuran causing immunosuppression because of her Crohn's. (2) COPD exacerbation Is this a current diagnosis for this admission?: Yes Plan: Continue with nebulizers. (3) Elevated serum hCG Is this a current diagnosis for this admission?: Yes Plan: Has been evaluated by gynecology. They do not feel that she is . (4) Anemia Qualifiers: Anemia type: unspecified type Qualified Code(s): D64.9 - Anemia, unspecified Is this a current diagnosis for this admission?: Yes (5) Crohns disease Qualifiers: Gastrointestinal tract location: unspecified location Digestive disease complication type: unspecified complication Qualified Code(s): K50.919 - Crohn 's disease, unspecified, with unspecified complications Is this a current diagnosis for this admission?: Yes Plan: Continue with Imuran. (6) Essential hypertension Is this a current diagnosis for this admission?: Yes Plan: Blood pressure has been stable. (7) GERD (gastroesophageal reflux disease) Qualifiers: Esophagitis presence: without esophagitis Qualified Code(s): K21.9 - Gastro -esophageal reflux disease without esophagitis Is this a current diagnosis for this admission?: Yes (8) Hypokalemia Is this a current diagnosis for this admission?: Yes Plan: Resolved. (9) Thrombocytosis Is this a current diagnosis for this admission?: Yes - Time Time Spent with patient: 25-34 minutes - Inpatient Certification Medical Necessity: Need for IV Antibiotics
[2017-04-25] MEDS: ZOLPIDEM TARTRATE 5 MG TABLET PO PRN (21:03)
[2017-04-26] MEDS: OXYCODONE HCL IR 5 MG TABLET PO PRN ×2 (01:02→06:57)
[2017-04-26] MEDS: IPRATROPIUM/ALBUTEROL 0.5-2.5 MG/3 ML AMPUL NEB SCH ×2 (02:30→08:28)
[2017-04-26] MEDS: CLINDAMYCIN 600 MG/D5W RTU 600 MG/50 ML RTUPB IV SCH (05:25)
[2017-04-26] MEDS: CIPROFLOXACIN 400 MG/D5W RTU 400 MG/200 ML RTUPB IV SCH (05:25)
[2017-04-26] MEDS: NORMAL SALINE 1000 ML 1,000 ML IV PRN (05:25)
[2017-04-26 06:41] LABS: ABSOLUTE BASOPHILS # (AUTO) 0.2 10^3/uL (0.0-0.2); ABSOLUTE MONOCYTES (AUTO) 0.6 10^3/uL (0.1-1.4); ABSOLUTE NEUT (AUTO) 6.9 10^3/uL (1.7-8.2); BASOPHILS % (AUTO) 1.6 % (0-2); EOSINOPHILS % (AUTO) 0.3 % (0-6); HEMATOCRIT 24.5 % (36.0-47.0); HGB HCT DIFFERENCE -0.5; LYMPHOCYTES % (AUTO) 27.8 % (13-45); MEAN CORPUSCULAR HEMOGLOBIN 29.1 pg (27.0-33.4); MEAN CORPUSCULAR HGB CONC 32.8 g/dL (32.0-36.0); MEAN CORPUSCULAR VOLUME 89 fl (80-97); MONOCYTES % (AUTO) 5.4 % (3-13); RED BLOOD COUNT 2.76 10^6/uL (3.72-5.28); SEGMENTED NEUTROPHILS % (AUTO) 64.9 % (42-78); WHITE BLOOD COUNT 10.6 10^3/uL (4.0-10.5)
[2017-04-26 06:48] LABS: ANION GAP 12 (5-19); BLOOD UREA NITROGEN 11 mg/dL (7-20); CALCIUM 8.7 mg/dL (8.4-10.2); CARBON DIOXIDE 22 mmol/L (22-30); CHLORIDE 112 mmol/L (98-107); CREATININE RESULT 0.98 mg/dL (0.52-1.25); GLUCOSE 71 mg/dL (75-110); POTASSIUM 3.9 mmol/L (3.6-5.0); SODIUM 145.5 mmol/L (137-145)
[2017-04-26] MEDS: CARISOPRODOL 350 MG TABLET PO SCH (08:37)
[2017-04-26] MEDS: PREDNISONE 20 MG TABLET PO SCH (08:37)
[2017-04-26] MEDS: FLUOXETINE HCL 20 MG CAPSULE PO SCH (08:38)
[2017-04-26] MEDS: AZATHIOPRINE 50 MG TABLET PO SCH (08:39)
[2017-04-26 10:28] VITALS: BP 87/42
--- NOTE | 2017-04-26 10:44 | PDOC PROGRESS REPORT ---
Subjective Progress Note for:: 04/26/17 Subjective:: just tired Physical Exam Vital Signs: Temp Pulse Resp BP Pulse Ox 97.6 F 75 16 87/42 L 95 04/26/17 10:00 04/26/17 10:00 04/26/17 10:00 04/26/17 10:00 04/26/17 10:00 Intake & Output 04/25/17 04/26/17 04/27/17 06:59 06:59 06:59 Intake Total 5334 2450 Output Total 650 600 Balance 4684 1850 Weight 64.9 kg 64.9 kg General appearance: PRESENT: no acute distress, cooperative, disheveled, well- developed Head exam: PRESENT: normocephalic Eye exam: PRESENT: conjunctiva pale, EOMI Mouth exam: PRESENT: dry mucosa, neck supple, tongue midline Neck exam: ABSENT: carotid bruit, JVD, lymphadenopathy, thyromegaly Respiratory exam: PRESENT: decreased breath sounds, prolonged expiratory phas, rhonchi, symmetrical, unlabored. ABSENT: crackles, stridor, tachypnea Cardiovascular exam: PRESENT: RRR, +S1, +S2. ABSENT: tachycardia Pulses: PRESENT: normal radial pulses GI/Abdominal exam: PRESENT: normal bowel sounds, soft. ABSENT: distended, guarding, mass, organolmegaly, rebound, tenderness Rectal exam: PRESENT: deferred Musculoskeletal exam: PRESENT: normal inspection Neurological exam: PRESENT: alert, awake Skin exam: PRESENT: dry, warm Results Laboratory Results: 04/26/17 05:35 04/26/17 05:35 04/26/17 04/26/17 05:35 05:35 WBC 10.6 H RBC 2.76 L Hgb 8.0 L Hct 24.5 L MCV 89 MCH 29.1 MCHC 32.8 RDW 19.0 H Plt Count 845 H Seg Neutrophils % 64.9 Lymphocytes % 27.8 Monocytes % 5.4 Eosinophils % 0.3 Basophils % 1.6 Absolute Neutrophils 6.9 Absolute Lymphocytes 3.0 Absolute Monocytes 0.6 Absolute Eosinophils 0.0 Absolute Basophils 0.2 Sodium 145.5 H Potassium 3.9 Chloride 112 H Carbon Dioxide 22 Anion Gap 12 BUN 11 Creatinine 0.98 Est GFR ( Amer) > 60 Est GFR (Non-Af Amer) > 60 Glucose 71 L Calcium 8.7 04/22/17 17:20 Sputum Gram Stain - Final 04/22/17 17:20 Sputum Sputum Culture - Final C.albicans/C.dubliniensis Normal Noemí Impressions: Chest X-Ray 04/22/17 07:15 IMPRESSION: MULTIFOCAL AIRSPACE DISEASE SUGGESTIVE OF PNEUMONIA. Abdomen/Pelvis CT 04/22/17 07:45 IMPRESSION: NO ACUTE FINDINGS WITHIN THE ABDOMEN OR PELVIS. MULTIFOCAL AIRSPACE DISEASE WITH CONSOLIDATION AND CAVITATION INVOLVING THE LINGULA AND RIGHT LOWER LOBE CORRESPONDING TO FINDINGS ON CHEST RADIOGRAPH. MOST COMMONLY THIS IS SECONDARY TO A CAVITATING BACTERIAL PNEUMONIA IN MAY BE SECONDARY TO ASPIRATION GIVEN MODERATE-SIZED HIATAL HERNIA. DIFFERENTIAL INCLUDES ATYPICAL INFECTIOUS/ INFLAMMATORY AIRSPACE DISEASE AND POTENTIALLY NEOPLASIA. RECOMMEND CORRELATION WITH RESPIRATORY SYMPTOMS, FEVER/ ELEVATED WHITE BLOOD CELL COUNT. PULMONARY CONSULTATION IS RECOMMENDED. Transvaginal US 04/23/17 00:00 IMPRESSION: Fibroid uterus. Ovaries not visualized. Assessment & Plan - Diagnosis (1) Elevated serum hCG Is this a current diagnosis for this admission?: Yes (2) GERD (gastroesophageal reflux disease) Qualifiers: Esophagitis presence: without esophagitis Qualified Code(s): K21.9 - Gastro -esophageal reflux disease without esophagitis Is this a current diagnosis for this admission?: Yes (3) Pneumonia Qualifiers: Pneumonia type: due to unspecified organism Laterality: bilateral Lung location: unspecified part of lung Qualified Code(s): J18.9 - Pneumonia, unspecified organism Is this a current diagnosis for this admission?: Yes
--- NOTE | 2017-04-26 11:14 | PDOC DISCHARGE SUMMARY ---
General - Admit/Disc Date/PCP Admission Date/Primary Care Provider: 04/22/17 13:28 Discharge Date: 04/26/17 - Discharge Diagnosis (1) Pneumonia Is this a current diagnosis for this admission?: Yes (2) COPD exacerbation Is this a current diagnosis for this admission?: Yes (3) Elevated serum hCG Is this a current diagnosis for this admission?: Yes Summary: Most likely just postmenopausal. FSH and LH levels are pending at the time of this dictation. Patient was evaluated by [facility] and they felt this was not a related lab. (4) Anemia Is this a current diagnosis for this admission?: Yes (5) Crohns disease Is this a current diagnosis for this admission?: Yes (6) Essential hypertension Is this a current diagnosis for this admission?: Yes (7) GERD (gastroesophageal reflux disease) Is this a current diagnosis for this admission?: Yes (8) Hypokalemia Is this a current diagnosis for this admission?: Yes (9) Thrombocytosis Is this a current diagnosis for this admission?: Yes - Additional Information Resuscitation Status: Full Code Discharge Diet: Cardiac Discharge Activity: Activity As Tolerated, Balance Activity w/Rest Home Medications: Azathioprine [Imuran 50 mg Tablet] 100 mg PO BID 04/22/17 Carisoprodol [Soma] 350 mg PO Q12 04/22/17 Dexlansoprazole [Dexilant 60 mg Capsule] 60 mg PO DAILY 04/22/17 Dextroamphetamine/Amphetamine [Adderall 10 mg Tablet] 10 mg PO BID 04/22/17 Fluoxetine HCl [Prozac] 80 mg PO DAILY 04/22/17 Fluticasone Propionate [Flonase Nasal [place] 50 Mcg/[place] 16 gm] 1 spray NASL DAILY 04/22/17 Lisinopril [Zestril] 10 mg PO DAILY 04/22/17 Meloxicam [Mobic] 7.5 mg PO DAILY 04/22/17 Oxycodone HCl 15 mg PO Q6HP PRN 04/22/17 Pregabalin [Lyrica] 50 mg PO Q12 04/22/17 Zolpidem Tartrate [Ambien] 20 mg PO HSP PRN 04/22/17 Clindamycin HCl 300 mg PO Q8 #60 capsule 04/26/17 Prednisone [Deltasone 20 mg Tablet] 10 mg PO DAILY #39 tablet 04/26/17 History of Present Illness History of Present Illness: AMMY BETANCOURT is a 46 year old female with a history of Crohn's disease who presented with persistent diarrhea. The patient also has had nausea and vomiting. The patient a week prior to presentation developed worsening shortness of breath and cough productive yellow sputum. The patient also has had 15 pound weight loss over the last 2 weeks. The patient had a chest x-ray which she presented to emergency room and was found to have multifocal infiltrates. Patient is admitted for treatment of pneumonia. Hospital Course Hospital Course: 46-year-old female who presented with cough, fevers and chills. Patient was found to have a pneumonia. This had occurred after having some episodes of vomiting and is questionable whether this was aspiration. The patient did have a cavitary lesion and was evaluated by pulmonary medicine. Patient had been started on clindamycin and has had a clinical improvement. All cultures have been negative. Patient also had a component of COPD and was treated with steroids also. On the day of discharge her respiratory status was back to baseline. She will be sent home with 10 days additional clindamycin and will follow up with her primary care doctor the next week to see if she needs a further course of treatment or whether that will been adequate treatment. Patient also will be sent home on a prednisone taper for treatment of her COPD exacerbation. Physical Exam Vital Signs: Temp Pulse Resp BP Pulse Ox 97.6 F 75 16 87/42 L 95 04/26/17 10:00 04/26/17 10:00 04/26/17 10:00 04/26/17 10:00 04/26/17 10:00 Intake & Output 04/25/17 04/26/17 04/27/17 06:59 06:59 06:59 Intake Total 5334 2450 Output Total 650 600 Balance 4684 1850 Weight 64.9 kg 64.9 kg General appearance: PRESENT: no acute distress Eye exam: PRESENT: conjunctiva pink. ABSENT: scleral icterus Neck exam: ABSENT: JVD Respiratory exam: PRESENT: clear to auscultation riaz. ABSENT: rales, rhonchi, wheezes Cardiovascular exam: PRESENT: RRR. ABSENT: diastolic murmur, rubs, systolic murmur GI/Abdominal exam: PRESENT: normal bowel sounds, soft. ABSENT: distended, guarding, mass, organolmegaly, rebound, tenderness Extremities exam: ABSENT: calf tenderness, clubbing, pedal edema Neurological exam: PRESENT: alert, awake, oriented to person, oriented to place , oriented to time, oriented to situation, CN II-XII grossly intact. ABSENT: motor sensory deficit Psychiatric exam: PRESENT: appropriate affect Skin exam: PRESENT: dry, intact, warm. ABSENT: cyanosis, rash Results Laboratory Results: 04/26/17 05:35 04/26/17 05:35 04/26/17 04/26/17 05:35 05:35 WBC 10.6 H RBC 2.76 L Hgb 8.0 L Hct 24.5 L MCV 89 MCH 29.1 MCHC 32.8 RDW 19.0 H Plt Count 845 H Seg Neutrophils % 64.9 Lymphocytes % 27.8 Monocytes % 5.4 Eosinophils % 0.3 Basophils % 1.6 Absolute Neutrophils 6.9 Absolute Lymphocytes 3.0 Absolute Monocytes 0.6 Absolute Eosinophils 0.0 Absolute Basophils 0.2 Sodium 145.5 H Potassium 3.9 Chloride 112 H Carbon Dioxide 22 Anion Gap 12 BUN 11 Creatinine 0.98 Est GFR ( Amer) > 60 Est GFR (Non-Af Amer) > 60 Glucose 71 L Calcium 8.7 04/22/17 17:20 Sputum Gram Stain - Final 04/22/17 17:20 Sputum Sputum Culture - Final C.albicans/C.dubliniensis Normal Noemí Impressions: Chest X-Ray 04/22/17 07:15 IMPRESSION: MULTIFOCAL AIRSPACE DISEASE SUGGESTIVE OF PNEUMONIA. Abdomen/Pelvis CT 04/22/17 07:45 IMPRESSION: NO ACUTE FINDINGS WITHIN THE ABDOMEN OR PELVIS. MULTIFOCAL AIRSPACE DISEASE WITH CONSOLIDATION AND CAVITATION INVOLVING THE LINGULA AND RIGHT LOWER LOBE CORRESPONDING TO FINDINGS ON CHEST RADIOGRAPH. MOST COMMONLY THIS IS SECONDARY TO A CAVITATING BACTERIAL PNEUMONIA IN MAY BE SECONDARY TO ASPIRATION GIVEN MODERATE-SIZED HIATAL HERNIA. DIFFERENTIAL INCLUDES ATYPICAL INFECTIOUS/ INFLAMMATORY AIRSPACE DISEASE AND POTENTIALLY NEOPLASIA. RECOMMEND CORRELATION WITH RESPIRATORY SYMPTOMS, FEVER/ ELEVATED WHITE BLOOD CELL COUNT. PULMONARY CONSULTATION IS RECOMMENDED. Transvaginal US 04/23/17 00:00 IMPRESSION: Fibroid uterus. Ovaries not visualized. Qualifiers PATEINT BEING DISCHARGED WITH ANY OF THE FOLLOWING DIAGNOSIS?: No Plan Discharge Plan: Patient is discharged home in stable condition. Follow with primary care in 1 week. Time Spent: Greater than 30 Minutes
[2017-04-26] MEDS: ENOXAPARIN SODIUM INJ 40 MG/0.4 ML DISP.SYRIN SUBCUT SCH (11:23)
== END 2017-04-26 11:45 | disposition home or self-care (01) | DRG 178 ==
LOC: ER 07:13 → EH 09:47 → UNDOADMIN 09:47 → EH 12:12 → 4N 12:12 → EH 13:28
DX: J69.0 Pneumonitis due to inhalation of food and vomit (principal); J44.1 Chronic obstructive pulmonary disease with (acute) exacerbation; K50.90 Crohn's disease, unspecified, without complications; K21.9 Gastro-esophageal reflux disease without esophagitis; E87.6 Hypokalemia; D64.9 Anemia, unspecified; I10 Essential (primary) hypertension; D47.3 Essential (hemorrhagic) thrombocythemia; D25.9 Leiomyoma of uterus, unspecified; R94.8 Abnormal results of function studies of other organs and systems; F90.9 Attention-deficit hyperactivity disorder, unspecified type; F32.9 Major depressive disorder, single episode, unspecified; F17.210 Nicotine dependence, cigarettes, uncomplicated
CPT/HCPCS: 36415; 71010; 74177; 76830; 80048; 80053; 81001; 81025; 82550; 82553; 83001; 83002; 83690; 83735; 84100; 84484; 84702; 84703; 85025; 85027; 87040; 87070; 87205; 93005; 93010; 93976; 94640; 96374; 96375; 99285; J0744; J1170; J1650; J1956; J2405; J2930; J3475; J3490; J7030; J7040; J7500; J7512; J7620

== ENCOUNTER 2017-04-26 18:25 | Emergency (ER) | payer MEDICARE, MEDICAID ==
[2017-04-26] MEDS ORDERED: DICYCLOMINE HCL INJ 20 MG/2 ML AMPULE IM ONE (18:50)
[2017-04-26] MEDS ORDERED: METOCLOPRAMIDE HCL INJ/PF 10 MG/2 ML SDV IM ONE (18:51)
[2017-04-26] MEDS ORDERED: MORPHINE SULFATE 10 MG/ML INJ IM ONE (18:51)
--- NOTE | 2017-04-26 19:02 | ER Document Report ---
ED General - General Chief Complaint: Abdominal Pain Stated Complaint: ABDOMINAL PAIN Time Seen by Provider: 04/26/17 18:46 Mode of Arrival: Medic Information source: Patient, [facility] Records Notes: 46-year-old female presents with history of Crohn's disease with complaints of pain from her Crohn's exacerbation. Patient was actually discharged from the facility today with pneumonia. Was sent home with steroids as well as antibiotics. Patient denies any fevers or chills TRAVEL OUTSIDE OF THE [place] IN LAST 30 DAYS: No - HPI Onset: Just prior to arrival Onset/Duration: Sudden Quality of pain: Cramping Severity: Moderate Pain Level: 2 Associated symptoms: Nausea, Vomiting Exacerbated by: Denies Relieved by: Denies Similar symptoms previously: Yes Recently seen / treated by doctor: Yes - Related Data Allergies/Adverse Reactions: No Known Allergies Allergy (Verified 04/26/17 18:44) Past Medical History - Social History Smoking Status: Current Every Day Smoker Cigarette use (# per day): Yes Chew tobacco use (# tins/day): No Smoking Education Provided: No Frequency of alcohol use: None Drug Abuse: None Family History: Reviewed & Not Pertinent, Hypertension, Other - Asthma; cancer Patient has suicidal ideation: No Patient has homicidal ideation: No - Past Medical History Cardiac Medical History: Reports: Hx Hypertension Pulmonary Medical History: Reports: Hx Asthma, Hx COPD Renal/ Medical History: Denies: Hx Peritoneal Dialysis GI Medical History: Reports: Hx Crohn's Disease, Hx Gastroesophageal Reflux Disease Psychiatric Medical History: Reports: Hx Attention Deficit Hyperactivity Disorder, Hx Depression Past Surgical History: Reports: Hx Section, Hx Gynecologic Surgery, Hx Orthopedic Surgery, Hx Tubal Ligation - Immunizations Hx Pneumococcal Vaccination: 04/16/16 Review of Systems - Review of Systems Notes: REVIEW OF SYSTEMS: CONSTITUTIONAL : Denies fever, chills, or sweats. Denies recent illness. EENT: Denies eye, ear, throat, or mouth pain or symptoms. Denies nasal or sinus congestion or discharge. Denies throat, tongue, or mouth swelling or difficulty swallowing. CARDIOVASCULAR: Denies chest pain. Denies palpitations or racing or irregular heart beat. Denies ankle edema. RESPIRATORY: Denies cough, cold, or chest congestion. Denies shortness of breath, difficulty breathing, or wheezing. GASTROINTESTINAL: Admits to abdominal pain nausea vomiting GENITOURINARY: Denies difficulty urinating, painful urination, burning, frequency, blood in urine, or discharge. FEMALE GENITOURINARY: Denies vaginal bleeding, heavy or abnormal periods, irregular periods. Denies vaginal discharge or odor. MUSCULOSKELETAL: Denies back or neck pain or stiffness. Denies joint pain or swelling. SKIN: Denies rash, lesions or sores. HEMATOLOGIC : Denies easy bruising or bleeding. LYMPHATIC: Denies swollen, enlarged glands. NEUROLOGICAL: Denies confusion or altered mental status. Denies passing out or loss of consciousness. Denies dizziness or lightheadedness. Denies headache. Denies weakness or paralysis or loss of use of either side. Denies problems with gait or speech. Denies sensory loss, numbness, or tingling. Denies seizures. PSYCHIATRIC: Denies anxiety or stress. Denies depression, suicidal ideation, or homicidal ideation. ALL OTHER SYSTEMS REVIEWED AND NEGATIVE. PHYSICAL EXAMINATION: GENERAL: Well-appearing, well-nourished and in mild distress. HEAD: Atraumatic, normocephalic. EYES: Pupils equal round and reactive to light, extraocular movements intact, conjunctiva are normal. ENT: Nares patent, oropharynx clear without exudates. Moist mucous membranes. NECK: Normal range of motion, supple without lymphadenopathy LUNGS: Breath sounds clear to auscultation bilaterally and equal. No wheezes rales or rhonchi. HEART: Regular rate and rhythm without murmurs ABDOMEN: Soft, generalized tender, nondistended abdomen. No guarding, no rebound. No masses appreciated. Female : deferred Musculoskeletal: Normal range of motion, no pitting or edema. No cyanosis. NEUROLOGICAL: Cranial nerves grossly intact. Normal speech, normal gait. Normal sensory, motor exams PSYCH: Normal mood, normal affect. SKIN: Warm, Dry, normal turgor, no rashes or lesions noted. Dictation was performed using [employer] voice recognition software Physical Exam - Vital signs Vitals: Temp Pulse Resp BP Pulse Ox 97.6 F 80 22 H 138/73 H 96 04/26/17 18:44 04/26/17 18:44 04/26/17 18:44 04/26/17 18:44 04/26/17 18:44 Course - Re-evaluation Re-evalutation: 04/26/17 19:02 Patient's abdomen is quite soft but she is screaming stating she is in pain, I evaluated her labs from today as well as a CT of abdomen which noted no abscess 04/26/17 19:05 Patient was given orders for pain medication but nurse notifies me that she says morphine will not touch her pain, I have higher suspicion for pain seeking concerns 04/26/17 21:05 Patient resting comfortably is in no distress I woke her and explained that she looks quite well will increase her steroids and have her follow-up with her GI specialist 04/26/17 22:01 I was notified that upon patient's discharge she is was concerned that she may have come back, I explained to her that we will gladly see her if there are any other concerns but at this time her vital signs are stable her abdomen is soft she had recently just been discharged and had blood work earlier today. Patient otherwise is in no distress and is safe for discharge I was then notified after discharge that patient's son does not believe patient should be discharged, they have been told that they can recheck in for reevaluation 04/26/17 22:02 - Vital Signs Vital signs: Temp Pulse Resp BP Pulse Ox 97.4 F 73 18 146/75 H 94 04/26/17 21:35 04/26/17 21:35 04/26/17 21:35 04/26/17 21:35 04/26/17 21:35 Discharge - Discharge Clinical Impression: Crohns disease Qualifiers: Gastrointestinal tract location: unspecified location Digestive disease complication type: without complication Qualified Code(s): K50.90 - Crohn's disease, unspecified, without complications Abdominal pain Qualifiers: Abdominal location: generalized Qualified Code(s): R10.84 - Generalized abdominal pain Condition: Stable Disposition: HOME, SELF-CARE Instructions: Abdominal Pain ([facility]) Prescriptions: Dicyclomine HCl [Bentyl 20 mg Tablet] 20 mg PO QID #30 tablet Metoclopramide HCl [Reglan 10 mg Tablet] 1 - 2 tab PO ASDIR PRN #25 tablet PRN Reason: Prednisone 60 mg PO DAILY 5 Days tablet Referrals: IAN SHARIF MD [ACTIVE STAFF] - Follow up tomorrow
[2017-04-26] MEDS ORDERED: HALOPERIDOL LACTATE INJ 5 MG/1 ML VIAL IM ONE (19:08)
[2017-04-26 21:39] VITALS: BP 146/75
== END 2017-04-26 21:40 | disposition home or self-care (01) ==
LOC: ER 18:25
DX: K50.90 Crohn's disease, unspecified, without complications (principal); R10.84 Generalized abdominal pain; F17.210 Nicotine dependence, cigarettes, uncomplicated
CPT/HCPCS: 99284; 96372; J0500; J1630; J2765; J2270

== ENCOUNTER 2017-09-01 18:30 | Emergency (ER) | payer OTHER, MEDICAID ==
[2017-09-01] MEDS ORDERED: KETOROLAC TROMETHAMINE 60 MG/2 ML SDV IM ONE (21:19)
[2017-09-01] MEDS ORDERED: LIDOCAINE 5% (700 MG) TRANSDERMAL ADH..PATCH TP ONE (21:20)
--- NOTE | 2017-09-01 21:21 | ER Document Report ---
ED General - General Chief Complaint: Back Pain Stated Complaint: BACK PAIN Time Seen by Provider: 09/01/17 21:01 Notes: Patient is a 47 year old female with a past medical history of chronic back pain , on chronic opiates who presents with 2 weeks of left buttock and thigh pain. Patient describes it as a severe, constant, stabbing pain to the left low back and buttock that radiates into the left lower extremity. She has been going to a chiropractor and taking her chronic pain medication without any improvement. Any movement worsens the pain. She denies a history of similar pain in the past. She denies any bowel or bladder incontinence, urinary retention, fever, history of IV drug use, or history of prior low back surgery. TRAVEL OUTSIDE OF THE [place] IN LAST 30 DAYS: No - Related Data Allergies/Adverse Reactions: No Known Allergies Allergy (Verified 09/01/17 18:31) Past Medical History - General Information source: Patient - Social History Smoking Status: Current Every Day Smoker Chew tobacco use (# tins/day): No Frequency of alcohol use: None Drug Abuse: None Lives with: Spouse/Significant other Family History: Reviewed & Not Pertinent, Hypertension, Other - Asthma; cancer Patient has suicidal ideation: No Patient has homicidal ideation: No - Past Medical History Cardiac Medical History: Reports: Hx Hypertension Pulmonary Medical History: Reports: Hx Asthma, Hx COPD Renal/ Medical History: Denies: Hx Peritoneal Dialysis GI Medical History: Reports: Hx Crohn's Disease, Hx Gastroesophageal Reflux Disease Psychiatric Medical History: Reports: Hx Attention Deficit Hyperactivity Disorder, Hx Depression Past Surgical History: Reports: Hx Section, Hx Gynecologic Surgery, Hx Orthopedic Surgery, Hx Tubal Ligation - Immunizations Hx Pneumococcal Vaccination: 04/16/16 Review of Systems - Review of Systems Notes: Constitutional: Negative for fever. HENT: Negative for sore throat. Eyes: Negative for visual changes. Cardiovascular: Negative for chest pain. Respiratory: Negative for shortness of breath. Gastrointestinal: Negative for abdominal pain, vomiting or diarrhea. Genitourinary: Negative for dysuria. Musculoskeletal: Positive for left low back pain Skin: Negative for rash. Neurological: Negative for headaches, weakness or numbness. 10 point ROS negative except as marked above and in HPI. Physical Exam - Vital signs Vitals: Temp Pulse BP Pulse Ox 98.1 F 84 129/85 H 96 09/01/17 18:48 09/01/17 18:48 09/01/17 18:48 09/01/17 18:48 Interpretation: Normal Notes: PHYSICAL EXAMINATION: GENERAL: Well-appearing, well-nourished and in no acute distress. HEAD: Atraumatic, normocephalic. EYES: Pupils equal round and reactive to light, extraocular movements intact, sclera anicteric, conjunctiva are normal. ENT: nares patent, oropharynx clear without exudates. Moist mucous membranes. NECK: Normal range of motion, supple without lymphadenopathy LUNGS: Breath sounds clear to auscultation bilaterally and equal. No wheezes rales or rhonchi. HEART: Regular rate and rhythm without murmurs ABDOMEN: Soft, nontender, normoactive bowel sounds. No guarding, no rebound. No masses appreciated. Back: No midline spinal tenderness, step-offs or deformities. EXTREMITIES: Normal range of motion, no pitting or edema. No cyanosis. Positive straight leg test on the left. Left-sided pain is also reproduced with straight leg test on the right NEUROLOGICAL: 5 out of 5 strength both distally and proximally bilateral lower extremities. 2+ patellar reflexes bilaterally. No clonus. Sensation grossly intact in the bilateral lower extremities. Patient is able to ambulate without difficulty. PSYCH: Normal mood, normal affect. SKIN: Warm, Dry, normal turgor, no rashes or lesions noted. Course - Re-evaluation Re-evalutation: 09/01/17 21:20 Presentation of a well appearing patient complaining of acute on chronic back pain. No rapid progression of symptoms, systemic symptoms including fevers, chills, weight loss, history of recent bacterial infection, bilateral symptoms, numbness, weakness, difficulty walking, urinary retention or bowel incontinence , personal history of cancer, immunosuppression, diabetes, known AAA, or history of IV drug use. Exam is without point tenderness over vertebral bodies , pulsatile abdominal mass, and patient has symmetric and intact lower extremity strength, sensation, and reflexes without clonus. 2+ symmetric medial malleolar and dorsalis pedis pulses Based on history and physical, I have a very low suspicion of a concerning etiology of pain including epidural compression syndrome, spinal infection, transverse myelitis, malignancy, abdominal aortic aneurysm, renal colic, acute lower extremity claudication, neurogenic claudication, ankylosing spondylitis, or other intra-abdominal process. Due to absence of concerning risk factors in history and physical as well as absence of rapidly progressive, severe, or bilateral symptoms, will defer imaging at this point. Plan to manage conservatively with outpatient analgesia, analgesia, and physical therapy. - Acetaminophen 650 q 4 + ibuprofen 600 q 6 - Continue normal daily activities as tolerated by pain - Provide with standard musculoskeletal back pain exercise instructions - Instruct to follow up with primary care provider if symptoms not improving - Provide careful return precautions and concerning symptoms to watch for. - Vital Signs Vital signs: Temp Pulse Resp BP Pulse Ox 98.1 F 77 18 163/93 H 98 09/01/17 18:48 09/01/17 22:31 09/01/17 22:31 09/01/17 22:31 09/01/17 22:31 Discharge - Discharge Clinical Impression: Chronic prescription opiate use Low back pain Qualifiers: Chronicity: acute Back pain laterality: left Sciatica presence: with sciatica Sciatica laterality: sciatica of left side Qualified Code(s): M54.42 - Lumbago with sciatica, left side Condition: Good Disposition: HOME, SELF-CARE Additional Instructions: You have been seen in the Emergency Department (ED) today for back pain. Your workup and exam have not shown any acute abnormalities and you are likely suffering from muscle strain or possible problems with your discs, but there is no treatment that will fix your symptoms at this time. For your pain: Take ibuprofen 600 mg and acetaminophen 1000 mg every 6 hours together as needed for pain. You should also purchase a local lidocaine cream such as "aspercreme with lidocaine" and use per bottle instructions to the affected area. Apply heat to the area as often as you are able. Continue to keep active and avoid prolonged periods of bed rest. Please follow up with your doctor as soon as possible regarding today's ED visit and your back pain. Return to the ED for worsening back pain, fever, weakness or numbness of either leg, or if you develop either (1) an inability to urinate or have bowel movements, or (2) loss of your ability to control your bathroom functions (if you start having "accidents"), or if you develop other new symptoms that concern you.concern you. Referrals: SONALI SERRATO MD [Primary Care Provider] - Follow up as needed
[2017-09-01 22:32] VITALS: BP 163/93
== END 2017-09-01 22:33 | disposition home or self-care (01) ==
LOC: ER 18:30
DX: M54.42 Lumbago with sciatica, left side (principal); F11.20 Opioid dependence, uncomplicated; M54.9 Dorsalgia, unspecified; G89.29 Other chronic pain; M79.652 Pain in left thigh; M79.605 Pain in left leg; F17.200 Nicotine dependence, unspecified, uncomplicated
CPT/HCPCS: 99283; 96372; J1885

== ENCOUNTER 2017-09-07 12:49 | Emergency (ER) | payer OTHER, MEDICAID ==
--- NOTE | 2017-09-07 13:48 | ER Document Report ---
ED General - General Chief Complaint: Hip Pain Stated Complaint: BACK PAIN Time Seen by Provider: 09/07/17 13:30 Mode of Arrival: Ambulatory Information source: Patient TRAVEL OUTSIDE OF THE [place] IN LAST 30 DAYS: No - HPI Notes: 39-year-old female presents today with complaints of of an acute exacerbation of chronic back pain and left hip pain. Patient takes opioids for her chronic back pain. Patient states that she has had lingering pain since she was seen on 01 September. Reports pain is stabbing and shoots from her lower back to her right hip. Denies any numbness and tingling goes past her knees. Worse with time, nothing makes better. Denies fevers, chills, chest pain, shortness of breath, nausea, vomiting, diarrhea, abdominal pain, hematuria,blurred vision, double vision, loss of vision, speech changes, LH, dizziness, syncope, headaches , neck pain, weakness, bowel or bladder dysfunction, saddle anesthesia, numbness or tingling in bilateral upper or lower extremities equally, hx of IV drug use, muscle paralysis, weakness in bilateral upper or lower extremities equally or rash - Related Data Allergies/Adverse Reactions: No Known Allergies Allergy (Verified 09/07/17 12:52) Past Medical History - General Information source: Patient - Social History Smoking Status: Current Every Day Smoker Chew tobacco use (# tins/day): No Frequency of alcohol use: None Drug Abuse: None Family History: Reviewed & Not Pertinent, Hypertension, Other - Asthma; cancer Patient has suicidal ideation: No Patient has homicidal ideation: No - Past Medical History Cardiac Medical History: Reports: Hx Hypertension Pulmonary Medical History: Reports: Hx Asthma, Hx COPD Renal/ Medical History: Denies: Hx Peritoneal Dialysis GI Medical History: Reports: Hx Crohn's Disease, Hx Gastroesophageal Reflux Disease Psychiatric Medical History: Reports: Hx Attention Deficit Hyperactivity Disorder, Hx Depression Past Surgical History: Reports: Hx Section, Hx Gynecologic Surgery, Hx Orthopedic Surgery, Hx Tubal Ligation - Immunizations Hx Pneumococcal Vaccination: 04/16/16 Review of Systems - Review of Systems Notes: REVIEW OF SYSTEMS: CONSTITUTIONAL : Denies fever, chills, or sweats. Denies recent illness. EENT: Denies eye, ear, throat, or mouth pain or symptoms. Denies nasal or sinus congestion or discharge. Denies throat, tongue, or mouth swelling or difficulty swallowing. CARDIOVASCULAR: Denies chest pain. Denies palpitations or racing or irregular heart beat. Denies ankle edema. RESPIRATORY: Denies cough, cold, or chest congestion. Denies shortness of breath, difficulty breathing, or wheezing. GASTROINTESTINAL: Denies abdominal pain or distention. Denies nausea, vomiting , or diarrhea. Denies blood in vomitus, stools, or per rectum. Denies black, tarry stools. Denies constipation. GENITOURINARY: Denies difficulty urinating, painful urination, burning, frequency, blood in urine, or discharge. FEMALE GENITOURINARY: Denies vaginal bleeding, heavy or abnormal periods, irregular periods. Denies vaginal discharge or odor. MUSCULOSKELETAL: positive for lower back and left hip pain. SKIN: Denies rash, lesions or sores. HEMATOLOGIC : Denies easy bruising or bleeding. LYMPHATIC: Denies swollen, enlarged glands. NEUROLOGICAL: Denies confusion or altered mental status. Denies passing out or loss of consciousness. Denies dizziness or lightheadedness. Denies headache. Denies weakness or paralysis or loss of use of either side. Denies problems with gait or speech. Denies sensory loss, numbness, or tingling. Denies seizures. PSYCHIATRIC: Denies anxiety or stress. Denies depression, suicidal ideation, or homicidal ideation. ALL OTHER SYSTEMS REVIEWED AND NEGATIVE. Physical Exam - Vital signs Vitals: Temp Pulse Resp BP Pulse Ox 97.7 F 86 16 118/64 96 09/07/17 12:54 09/07/17 12:54 09/07/17 12:54 09/07/17 12:54 09/07/17 12:54 - Notes Notes: PHYSICAL EXAMINATION: GENERAL: chronically ill well-nourished and in no acute distress. HEAD: Atraumatic, normocephalic. EYES: Pupils equal round and reactive to light, extraocular movements intact, conjunctiva are normal. ENT: Nares patent, oropharynx clear without exudates. Moist mucous membranes. NECK: Normal range of motion, supple without lymphadenopathy LUNGS: Breath sounds clear to auscultation bilaterally and equal. No wheezes rales or rhonchi. HEART: Regular rate and rhythm without murmurs ABDOMEN: Soft, nontender, nondistended abdomen. No guarding, no rebound. No masses appreciated. Female : deferred Musculoskeletal: Normal range of motion, no pitting or edema. No cyanosis. NEUROLOGICAL: Cranial nerves grossly intact. Normal speech, normal gait. Normal sensory, motor exams. straight leg test negative. left hip with full range of motion, tenderness on palpation at joint pain with flexion and extension at 30 degrees. Normal hip rotation. DTR +2 in BLE equally. Strength 5 out of 5 both distally and proximally to bilateral lower extremities normal motor and sensory function in BLE equally. Distal pulses + 2 BLE equally. Noted paraspinal tenderness near L2 and L3. No spinal tenderness. No CVA tenderness bilaterally. Femoral pulses + 2 bilaterally and equally. No abrasions, scars, lacerations, ecchymosis of any recent trauma. PSYCH: Normal mood, normal affect. SKIN: Warm, Dry, normal turgor, no rashes or lesions noted. Dictation was performed using [employer] voice recognition software Course - Re-evaluation Re-evalutation: Presentation of a pt complaining of acute and chronic lower back pain and left hip pain. no rapid progression of symptoms, systemic symptoms including fevers, chills, weight loss, history of recent bacterial infection, bilateral symptoms, numbness, weakness, difficulty walking, urinary retention or bowel incontinence , personal history of cancer, immunosuppression, diabetes, known AAA , or history of IV drug use. rechecked the patient who is resting comfortably. Based on history and physical, I have a very low suspicion concerning of an etiology of pain including epidural compression syndrome, spinal infection, transverse myelitis, malignancy, abdominal aortic aneurysm, renal colic, acute lower extremity claudication, neurogenic claudication, ankylosing spondylitis, or other intra-abdominal process. on re-exam, patient is symptomatically improved. Discussed the results of the radiology as well as the diagnosis at great length. Discussed the need to return to the ER for any new or worsening sx, Patient understands to take the Rx as directed. All questions answered. Patient comfortable with the decision to go home. advised to return to the ER if any signs or symptoms became worse. Take over- the-counter Motrin and Tylenol as needed for any fevers or pain. Follow up with primary care within 1-2 days. All questions and concerns answered by this provider. Patient/family states would follow plan of care and agreed to plan of care. Patient was discharged home and off unit without incident. Please excuse any errors in this document was done by roselyn [email or web address] After performing a Medical Screening Examination, I estimate there is LOW risk for EXPANDING OR RUPTURED ABDOMINAL AORTIC ANEURYSM, CAUDA EQUINA SYNDROME, EPIDURAL MASS ABSCESS OR LESION(S), OSTEOMYELITIS,PERSONAL HISTORY OF CANCER, IMMUNOSUPPERSSSION, HISTORY OF IV DRUG USE, FRACTURE, CORD COMPERSSION, CANCER, RETROPERITONEAL BLEED, SPINAL EPIDURAL HEMATOMA, or HERNIATED DISK CAUSING SEVERE SPINAL STENOSIS, thus I consider the discharge disposition reasonable. I have reevaluated this patient multiple times and no significant life threatening changes are noted. The patient and I have discussed the diagnosis and risks, and we agree with discharging home and close follow-up. We also discussed returning to the Emergency Department immediately if new or worsening symptoms occur with the understanding that symptoms and presentations can change. We have discussed the symptoms which are most concerning (e.g., saddle anesthesia, urinary or bowel incontinence or retention, changing or worsening pain) that necessitate immediate return. - Vital Signs Vital signs: Temp Pulse Resp BP Pulse Ox 97.7 F 71 16 128/73 H 98 09/07/17 15:58 09/07/17 15:58 09/07/17 15:58 09/07/17 15:58 09/07/17 15:58 Discharge - Discharge Clinical Impression: Chronic hip pain Chronic back pain Qualifiers: Back pain location: low back pain Back pain laterality: left Sciatica presence : with sciatica Condition: Good Disposition: HOME, SELF-CARE Prescriptions: Lidocaine 1 each TP DAILY #10 adh..patch Prednisone 20 mg PO BID #10 tablet Referrals: VERÓNICA TITUS MD [ACTIVE STAFF] - Follow up in 3-5 days SONALI SERRATO MD [Primary Care Provider] - Follow up in 3-5 days
--- NOTE | 2017-09-07 14:13 | RADIOLOGY REPORT (SQ) ---
EXAM DESCRIPTION: L SPINE WHOLE COMPLETED DATE/TIME: 09/07/2017 2:05 pm REASON FOR STUDY: lower back pain COMPARISON: CT abdomen pelvis 04/22/2017 NUMBER OF VIEWS: Five views including obliques. TECHNIQUE: AP, lateral, oblique, and sacral radiographic images acquired of the lumbar spine. LIMITATIONS: None. FINDINGS: MINERALIZATION: Osteopenic SEGMENTATION: Normal. No transitional anatomy. ALIGNMENT: Normal. VERTEBRAE: Maintained height. No fracture or worrisome bone lesion. DISCS: Disc space loss of height at L4-5 and L5-S1. POSTERIOR ELEMENTS: Mild lower lumbar facet arthropathy at L4-5 and L5-S1 HARDWARE: None in the spine. PARASPINAL SOFT TISSUES: Heavily calcified abdominal aorta without calcified aneurysm PELVIS: Incompletely included in the field of view. SI joints unremarkable. OTHER: No other significant finding. IMPRESSION: Lower lumbar spine degenerative changes TECHNICAL DOCUMENTATION: JOB ID: [id number] [employer]- All Rights Reserved
--- NOTE | 2017-09-07 14:14 | RADIOLOGY REPORT (SQ) ---
EXAM DESCRIPTION: HIP LEFT AP/LATERAL COMPLETED DATE/TIME: 09/07/2017 2:05 pm REASON FOR STUDY: left hip pain COMPARISON: Lumbar spine films same date CT abdomen pelvis 04/22/2017 NUMBER OF VIEWS: Two views. TECHNIQUE: AP pelvis and additional frog-leg view of the left hip. LIMITATIONS: None. FINDINGS: MINERALIZATION: Normal. LEFT HIP: No fracture or dislocation. No worrisome bone lesions. No significant joint space narrowi ng or bony spurring RIGHT HIP: No fracture or dislocation. No worrisome bone lesions. No significant joint space narrow ing or bony spurring PUBIS AND ISCHIUM: No fracture. PELVIS: No fracture. SACRUM: No fracture or dislocation. No worrisome bone lesions. SOFT TISSUES: No findings. OTHER: No other significant finding. IMPRESSION: NEGATIVE STUDY OF THE LEFT HIP AND PELVIS. NO RADIOGRAPHIC EVIDENCE OF ACUTE INJURY. TECHNICAL DOCUMENTATION: JOB ID: [id number] [employer]- All Rights Reserved
[2017-09-07] MEDS ORDERED: KETOROLAC TROMETHAMINE 60 MG/2 ML SDV IM ONE (14:54)
[2017-09-07 15:59] VITALS: BP 128/73
== END 2017-09-07 15:59 | disposition home or self-care (01) ==
LOC: ER 12:49
DX: G89.29 Other chronic pain (principal); M25.552 Pain in left hip; M54.5 Low back pain; F17.200 Nicotine dependence, unspecified, uncomplicated; I10 Essential (primary) hypertension; J44.9 Chronic obstructive pulmonary disease, unspecified; Z98.51 Tubal ligation status
CPT/HCPCS: 99283; 96372; 73502; 72110; J1885